=== PATIENT | male | born 1950 | race Caucasian/White ===

== ENCOUNTER → 2018-02-17 14:00 | Outpatient (CLI) | payer MEDICARE, SELFPAY | PROVIDERS: PCP Physician Assistant Medical; Visit Provider Student in an Organized Health Care Education/Training Program | DX: R06.09 Other forms of dyspnea (principal); E78.5 Hyperlipidemia, unspecified; I10 Essential (primary) hypertension; J44.9 Chronic obstructive pulmonary disease, unspecified; F17.210 Nicotine dependence, cigarettes, uncomplicated | CPT/HCPCS: 99204 ==

== ENCOUNTER 2018-03-23 11:42 | Outpatient (REF) | payer MEDICARE, SELFPAY ==
[2018-03-23 19:36] LABS: Abs Immature Grans 0.04 k/cumm (0.0-0.09); Absolute Eosinophil Count 0.13 k/cumm (0.0-0.7); Absolute Monocyte Count 1.48 k/cumm (0.11-0.7); Basophils % 0.4; Eosinophils % 1.2; HCT 42.7 % (40.0-50.0); HGB 13.9 g/dL (13.5-17.5); Immature Grans % 0.4; Lymphocytes % 26.1; Mean Corp. HGB Concentration 32.6 g/dL (32.0-36.0); Mean Corpuscular Hemoglobin 27.8 pg (27.0-33.0); Mean Corpuscular Volume 85.4 fL (80-95); Mean Platelet Volume 12.8 fL (8.0-11.0); Monocytes % 13.3; Neutrophils % 58.6; Platelet Count 235 x1000/uL (130-400); RBC Distribution Width 18.9 % (11.8-14.1); White Blood Cell Count 11.13 k/cumm (4.4-10.8)
[2018-03-23 19:37] LABS: Absolute Basophil Count 0.04 k/cumm (0.0-0.2); Absolute Neutrophil Count 6.52 k/cumm (1.2-6.7)
[2018-03-23 19:54] LABS: Iron 49 ug/dL (50-175); Total Iron Binding Capacity 388 ug/dL (250-450); Transferrin Sat 13 % (20-55)
[2018-03-23 20:03] LABS: ALT 27 U/L (12-78); AST 18 U/L (15-37); Albumin 3.5 g/dL (3.4-5.0); Alkaline Phosphatase 95 U/L (46-116); Anion Gap 8.7 mmol/L (3-11); BUN 18 mg/dL (7-18); Bilirubin, Total 0.4 mg/dL (0.2-1.0); CO2 27.3 mmol/L (21.0-32.0); CREATININE 0.98 mg/dL (0.70-1.30); Calcium 8.8 mg/dL (8.5-10.1); Chloride 104 mmol/L (98-107); Ferritin 17 ng/mL (8-388); Glucose 89 mg/dL (70-100); Potassium 4.4 mmol/L (3.5-5.1); Sodium 140 mmol/L (136-145); TSH (W/Ref FT4) 1.31 uIU/mL (0.358-3.74); Total Protein 7.1 g/dL (6.4-8.2)
[2018-03-23 20:47] LABS: Anisocytosis 1+; Diff Comment RBC Morph Reviewed
== END 2018-03-23 12:02 ==
LOC: NCHCN 11:42
PROVIDERS: PCP Physician Assistant Medical; Visit Provider Physician Assistant Medical
DX: I50.9 Heart failure, unspecified (principal); J44.9 Chronic obstructive pulmonary disease, unspecified; L53.9 Erythematous condition, unspecified; G89.4 Chronic pain syndrome; R60.9 Edema, unspecified; F17.209 Nicotine dependence, unspecified, with unspecified nicotine-induced disorders
CPT/HCPCS: 80053; 82728; 83540; 83550; 84443; 85025

== ENCOUNTER 2018-05-06 12:51 | Outpatient (RCR) | payer MEDICARE, SELFPAY | END 2018-06-04 23:59 | disposition home or self-care (01) | LOC: PRC 12:51 | PROVIDERS: PCP Physician Assistant Medical; Visit Provider Family Medicine | DX: Z51.89 Encounter for other specified aftercare (principal) ==

== ENCOUNTER 2018-06-02 02:01 | Outpatient (RCR) | payer MEDICARE, SELFPAY | END 2018-06-04 23:59 | disposition home or self-care (01) | LOC: PRC 02:01 | PROVIDERS: PCP Physician Assistant Medical; Visit Provider Family Medicine | DX: J44.9 Chronic obstructive pulmonary disease, unspecified (principal); Z51.89 Encounter for other specified aftercare | CPT/HCPCS: G0424 ==

== ENCOUNTER → 2018-06-08 14:34 | Outpatient (BNVA) | payer MEDICARE, SELFPAY | PROVIDERS: PCP Physician Assistant Medical; Visit Provider Urology | DX: N40.1 Benign prostatic hyperplasia with lower urinary tract symptoms (principal); R35.0 Frequency of micturition | CPT/HCPCS: 99213 ==

== ENCOUNTER 2018-06-09 09:57 | Outpatient (RCR) | payer MEDICARE, SELFPAY | END 2018-07-05 23:59 | disposition home or self-care (01) | LOC: PRC 09:57 | PROVIDERS: PCP Physician Assistant Medical; Visit Provider Family Medicine | DX: J44.9 Chronic obstructive pulmonary disease, unspecified (principal); Z51.89 Encounter for other specified aftercare | CPT/HCPCS: G0424 ==

== ENCOUNTER 2018-07-07 13:55 | Outpatient (RCR) | payer MEDICARE, SELFPAY | END 2018-08-05 23:59 | disposition home or self-care (01) | LOC: PRC 13:55 | PROVIDERS: PCP Physician Assistant Medical; Visit Provider Family Medicine | DX: J44.9 Chronic obstructive pulmonary disease, unspecified (principal); Z51.89 Encounter for other specified aftercare ==

== ENCOUNTER 2018-07-19 16:46 | Outpatient (REF) | payer MEDICARE, SELFPAY | END 2018-07-19 17:06 | LOC: NCHCN 16:46 | PROVIDERS: PCP Physician Assistant Medical; Visit Provider Nurse Practitioner Family | DX: Z12.5 Encounter for screening for malignant neoplasm of prostate (principal); N40.0 Benign prostatic hyperplasia without lower urinary tract symptoms | CPT/HCPCS: 84153 ==

== ENCOUNTER 2018-08-06 03:28 | Outpatient (RCR) | payer MEDICARE, SELFPAY | END 2018-09-02 23:59 | disposition home or self-care (01) | LOC: PRC 03:28 | PROVIDERS: PCP Physician Assistant Medical; Visit Provider Family Medicine | DX: J44.9 Chronic obstructive pulmonary disease, unspecified (principal); Z51.89 Encounter for other specified aftercare ==

== ENCOUNTER 2018-09-15 15:52 | Outpatient (REF) | payer MEDICARE, SELFPAY ==
[2018-09-15 21:40] LABS: ALT 25 U/L (12-78); AST 16 U/L (15-37); Cholesterol 147 mg/dL (50-200); HDL Cholesterol 34 mg/dL (40-60); LDL CHOLESTEROL 91 mg/dL (<100); Triglyceride 119 mg/dL (30-150)
[2018-09-15 22:10] LABS: Creatine Kinase 112 U/L (39-308)
== END 2018-09-15 16:12 ==
LOC: NCHCN 15:52
PROVIDERS: PCP Physician Assistant Medical; Visit Provider Nurse Practitioner Family
DX: E78.5 Hyperlipidemia, unspecified (principal); I10 Essential (primary) hypertension
CPT/HCPCS: 80061; 82550; 83721; 84450; 84460

== ENCOUNTER 2018-11-08 16:22 | Outpatient (REF) | payer MEDICARE, SELFPAY ==
[2018-11-08 21:39] LABS: Bacteria Negative HPF (Negative); C & S Indicated? C&S Done As Ordered; Casts Negative LPF (Negative); Crystals Negative HPF (Negative); Epithelial Cells Few HPF (Negative); Mucus Negative (Negative); Other Cells Negative (Negative); RBC Negative (0-2)
== END 2018-11-08 16:42 ==
LOC: NCHCN 16:22
PROVIDERS: PCP Physician Assistant Medical; Visit Provider Nurse Practitioner Family
DX: R31.0 Gross hematuria (principal); R06.02 Shortness of breath; L53.9 Erythematous condition, unspecified; G89.4 Chronic pain syndrome
CPT/HCPCS: 81015; 87086

== ENCOUNTER 2019-03-31 16:57 | Outpatient (REF) | payer MEDICARE, SELFPAY ==
[2019-03-31 21:24] LABS: Anion Gap 7.9 mmol/L (3-11); BUN 18 mg/dL (7-18); CO2 29.1 mmol/L (21.0-32.0); CREATININE 0.83 mg/dL (0.70-1.30); Calcium 9.1 mg/dL (8.5-10.1); Chloride 103 mmol/L (98-107); Glucose 98 mg/dL (70-100); Potassium 5.1 mmol/L (3.5-5.1); Sodium 140 mmol/L (136-145)
== END 2019-03-31 17:17 ==
LOC: NCHCN 16:57
PROVIDERS: PCP Physician Assistant Medical; Visit Provider Nurse Practitioner Family
DX: L97.929 Non-pressure chronic ulcer of unspecified part of left lower leg with unspecified severity (principal); L97.919 Non-pressure chronic ulcer of unspecified part of right lower leg with unspecified severity; I10 Essential (primary) hypertension
CPT/HCPCS: 80048

== ENCOUNTER 2019-05-04 01:04 | Outpatient (CLI) | payer MEDICARE, SELFPAY ==
--- NOTE | 2019-05-04 14:05 | DI.CTLCSR_ITS ---
EXAM: CT CHEST LUNG CANCER SCREEN CLINICAL HISTORY: SMOKER, F17.210,[facility], Z00.00 TECHNIQUE: CT was performed according to usual protocol. COMPARISON: CHEST - LUNG CANCER SCREENING from 10/09/2017 FINDINGS: There is atherosclerosis of the thoracic aorta but no aneurysmal dilatation is present. Heart size i s within normal limits. No pericardial effusion is present. Coronary artery calcifications are prese nt. No significant thoracic adenopathy is present. No pleural effusion or pneumothorax is identifie d. Emphysematous changes are present in the lungs. There is scarring or atelectasis in the right mi ddle lobe and left lingula. No pulmonary nodules are present. The tracheobronchial tree is unremark able. Degenerative changes are seen in the spine. IMPRESSION: No pulmonary nodules. Lung RADS Cat 1 - Negative: No nodules and definitely benign nodules
== END 2019-05-04 01:24 ==
PROVIDERS: PCP Nurse Practitioner Family; Visit Provider Nurse Practitioner Family
DX: Z12.2 Encounter for screening for malignant neoplasm of respiratory organs (principal); F17.210 Nicotine dependence, cigarettes, uncomplicated; J98.4 Other disorders of lung; I70.0 Atherosclerosis of aorta
CPT/HCPCS: G0297

== ENCOUNTER → 2019-08-19 13:58 | Outpatient (BNVA) | payer MEDICARE, SELFPAY | PROVIDERS: PCP Nurse Practitioner Family; Referring Provider Nurse Practitioner Family; Visit Provider Urology | DX: R97.20 Elevated prostate specific antigen [PSA] (principal); N40.1 Benign prostatic hyperplasia with lower urinary tract symptoms; R31.0 Gross hematuria; N13.8 Other obstructive and reflux uropathy | CPT/HCPCS: 99213 ==

== ENCOUNTER 2019-09-13 16:01 | Outpatient (REF) | payer MEDICARE, SELFPAY ==
[2019-09-13 20:50] LABS: ALT 26 U/L (16-63); AST 14 U/L (15-37); Anion Gap 6.7 mmol/L (3-11); BUN 18 mg/dL (7-18); CO2 29.3 mmol/L (21.0-32.0); CREATININE 0.87 mg/dL (0.70-1.30); Calcium 8.3 mg/dL (8.5-10.1); Chloride 104 mmol/L (98-107); Glucose 97 mg/dL (74-106); HDL Cholesterol 36 mg/dL (40-60); LDL CHOLESTEROL 106 mg/dL (<100); Potassium 4.3 mmol/L (3.5-5.1); Sodium 140 mmol/L (136-145)
[2019-09-13 21:15] LABS: Creatine Kinase 61 U/L (39-308)
[2019-09-15 10:13] LABS: PSA, Diagnostic 1.2 ng/mL (0.0-4.5)
== END 2019-09-13 16:21 ==
LOC: NCHCN 16:01
PROVIDERS: PCP Nurse Practitioner Family; Visit Provider Nurse Practitioner Family
DX: I10 Essential (primary) hypertension (principal); R06.02 Shortness of breath; E78.5 Hyperlipidemia, unspecified; N40.0 Benign prostatic hyperplasia without lower urinary tract symptoms
CPT/HCPCS: 80048; 82550; 83721; 83718; 84153; 84450; 84460

== ENCOUNTER 2019-11-07 16:35 | Outpatient (REF) | payer MEDICARE, SELFPAY ==
[2019-11-07 20:01] LABS: ALT 31 U/L (16-63); AST 20 U/L (15-37); HDL Cholesterol 38 mg/dL (40-60); LDL CHOLESTEROL 138 mg/dL (<100)
[2019-11-07 22:28] LABS: Creatine Kinase 70 U/L (39-308)
== END 2019-11-07 16:55 ==
LOC: NCHCN 16:35
PROVIDERS: PCP Nurse Practitioner Family; Visit Provider Nurse Practitioner Family
DX: E78.5 Hyperlipidemia, unspecified (principal); I10 Essential (primary) hypertension; F17.209 Nicotine dependence, unspecified, with unspecified nicotine-induced disorders; J44.9 Chronic obstructive pulmonary disease, unspecified; E78.00 Pure hypercholesterolemia, unspecified; M54.5 Low back pain
CPT/HCPCS: 82550; 83721; 83718; 84450; 84460

== ENCOUNTER 2020-03-06 20:41 | Outpatient (REF) | payer MEDICARE, SELFPAY ==
[2020-03-06 19:43] LABS: Anion Gap 7.4 mmol/L (3-11); BUN 15 mg/dL (7-18); CO2 29.6 mmol/L (21.0-32.0); CREATININE 0.94 mg/dL (0.70-1.30); Chloride 104 mmol/L (98-107); Glucose 99 mg/dL (74-106); Potassium 4.9 mmol/L (3.5-5.1); Sodium 141 mmol/L (136-145)
== END 2020-03-06 21:01 ==
LOC: NCHCN 20:41
PROVIDERS: PCP Nurse Practitioner Family; Visit Provider Nurse Practitioner Family
DX: I10 Essential (primary) hypertension (principal)
CPT/HCPCS: 80048

== ENCOUNTER 2020-04-25 14:54 | Outpatient (REF) | payer MEDICARE, SELFPAY ==
[2020-04-28 23:56] LABS: Patient Race White; SARS-CoV-2 RNA Undetected (Undetected); SARS-CoV-2 Specimen Source Nasal
== END 2020-04-25 15:14 ==
LOC: NCHCN 14:54
PROVIDERS: PCP Nurse Practitioner Family; Visit Provider Nurse Practitioner Family
DX: R19.7 Diarrhea, unspecified (principal); R10.9 Unspecified abdominal pain
CPT/HCPCS: U0003

== ENCOUNTER 2020-05-07 02:18 | Outpatient (CLI) | payer MEDICARE, SELFPAY ==
--- NOTE | 2020-05-07 | DI.CTLCSR_ITS ---
EXAM: CT CHEST LUNG CANCER SCREEN CLINICAL HISTORY: SCREENING FOR LUNG CA, CURRENT SMOKER, F17.210 TECHNIQUE: Imaging Protocol: Axial computed tomography images with coronal and sagittal reformatted images were created and reviewed COMPARISON: CT CT CHEST LUNG CANCER SCREEN from 05/04/2019 FINDINGS: Tracheobronchial tree: Patent where visualized. Mediastinum and Kati: No dominant adenopathy or fluid collection. Pulmonary parenchyma: No consolidation or dominant measurable mass. Centrilobular emphysema. Lung Nodules: None. Pleura: No effusion or pneumothorax. Heart: The heart is not dilated. Mild coronary artery calcification. No significant pericardial effu tasia. Aorta: Thoracic aorta non-dilated.Atherosclerosis. Upper abdomen: Unremarkable. Bones: Degenerative changes. Soft Tissues: Unremarkable. IMPRESSION: No pulmonary nodules. Lung RADS Cat 1 - Negative: No nodules and definitely benign nodules Lung-RADS 1.0 CATEGORIES: Category 0 - Prior chest CT exam(s) being located for comparison. Category 1 - Annual screening in 12 months. No nodules or definitely benign nodules. Category 2 - Annual screening in 12 months. Benign appearance. Nodules with low likelihood of becomin g active cancer. Category 3 - 6-month follow-up. Probably benign. Short-term follow-up suggested. Nodules with low lik elihood of becoming active cancer. Category 4A - 3-month follow-up and CT/PET if >8 mm in size. Suspicious finding. Findings which requi re additional testing. Category 4B - Findings which require additional testing and tissue sampling. Suspicious finding. C Added to Any of the Above - History of prior lung cancer screening. S Added to Any of the Above - Significant unexpected other finding. RADIATION DOSE DELIVERED: 84.12mGy.cm Total DLP DATA REPOSITORY: All CT scans at this facility are submitted to the National Radiology Data Registry (NRDR) Dose Index Registry (DIR) with the [employer] (ACR). RADIATION OPTIMIZATION: All CT scans at this facility use at least one of these dose optimization te chniques: automated exposure control; mA and/or kV adjustment per patient size (includes targeted exa ms where dose is matched to clinical indication); or iterative reconstruction.
== END 2020-05-07 02:38 ==
PROVIDERS: PCP Nurse Practitioner Family; Visit Provider Internal Medicine
DX: F17.210 Nicotine dependence, cigarettes, uncomplicated (principal)
CPT/HCPCS: G0297

== ENCOUNTER 2020-05-17 01:24 | Outpatient (CLI) | payer MEDICARE, SELFPAY ==
--- NOTE | 2020-05-17 | DI.RAD_ITS ---
EXAM: XR LUMBAR SPINE COMPLETE CLINICAL HISTORY: WORSENING CHRONIC LOW BACK PAIN,M54.5,EVALUATED OA. TECHNIQUE: 2D digital imaging was performed. COMPARISON: No exams were available for comparison FINDINGS: There are 5 lumbar type vertebral bodies. There is normal alignment. No spondylolysis or spondyloli sthesis. Narrowing at the T12-L1 and L1-L2 disc spaces is noted. There are degenerative changes of the L5-S1 facets. No acute fracture or subluxation is identified. Atherosclerosis is present. IMPRESSION: Cyto-xa-qenvquzm degenerative changes in the lumbar spine. DATA REPOSITORY: RADIATION DOSE DELIVERED:
== END 2020-05-17 01:44 ==
PROVIDERS: PCP Nurse Practitioner Family; Visit Provider Nurse Practitioner Family
DX: M47.817 Spondylosis without myelopathy or radiculopathy, lumbosacral region (principal)
CPT/HCPCS: 72110

== ENCOUNTER 2020-07-05 16:30 | Outpatient (REF) | payer MEDICARE, SELFPAY ==
[2020-07-08 13:18] LABS: COVID-19 RT-PCR UVMMC Result Negative (Negative)
== END 2020-07-05 16:50 ==
LOC: NCHCN 16:30
PROVIDERS: PCP Nurse Practitioner Family; Visit Provider Nurse Practitioner Family
DX: Z20.828 Contact with and (suspected) exposure to other viral communicable diseases (principal)
CPT/HCPCS: U0003

== ENCOUNTER 2020-07-12 21:12 | Outpatient (REF) | payer OTHER, SELFPAY ==
[2020-07-14 11:36] LABS: COVID-19 RT-PCR UVMMC Result Negative (Negative)
== END 2020-07-12 21:32 ==
LOC: NCHCN 21:12
PROVIDERS: PCP Nurse Practitioner Family; Visit Provider Nurse Practitioner Family
DX: Z20.828 Contact with and (suspected) exposure to other viral communicable diseases (principal)
CPT/HCPCS: U0003

== ENCOUNTER 2020-08-21 15:36 | Outpatient (REF) | payer OTHER, SELFPAY ==
[2020-08-21 19:43] LABS: ALT 25 U/L (16-63); AST 11 U/L (15-37); Anion Gap 5.8 mmol/L (3-11); BUN 15 mg/dL (7-18); CO2 28.2 mmol/L (21.0-32.0); CREATININE 0.9 mg/dL (0.70-1.30); Calcium 9.2 mg/dL (8.5-10.1); Chloride 105 mmol/L (98-107); Glucose 91 mg/dL (74-106); HDL Cholesterol 42 mg/dL (40-60); LDL CHOLESTEROL 112 mg/dL (<100); Sodium 139 mmol/L (136-145)
[2020-08-21 19:57] LABS: Creatine Kinase 55 U/L (39-308)
[2020-08-22 17:02] LABS: PSA, Screening 1.4 ng/mL (0.0-6.5)
== END 2020-08-21 15:37 | disposition home or self-care (01) ==
LOC: NCHCN 15:36
PROVIDERS: PCP Nurse Practitioner Family; Visit Provider Nurse Practitioner Family
DX: I10 Essential (primary) hypertension (principal); R97.20 Elevated prostate specific antigen [PSA]; Z12.5 Encounter for screening for malignant neoplasm of prostate; E78.00 Pure hypercholesterolemia, unspecified
CPT/HCPCS: 80048; 82550; 83721; 84153; 83718; 84450; 84460

== ENCOUNTER → 2020-09-06 10:04 | Outpatient (BNVA) | payer OTHER, SELFPAY | PROVIDERS: PCP Nurse Practitioner Family; Referring Provider Nurse Practitioner Family; Visit Provider Nurse Practitioner Gerontology | DX: R31.0 Gross hematuria (principal); R97.20 Elevated prostate specific antigen [PSA]; N40.1 Benign prostatic hyperplasia with lower urinary tract symptoms; N13.8 Other obstructive and reflux uropathy | CPT/HCPCS: 99213 ==

== ENCOUNTER → 2021-02-25 00:17 | Outpatient (CLI) | payer OTHER, SELFPAY ==
--- NOTE | 2021-02-25 11:00 | DI.NM_ITS ---
APPROVED REPORT Exam: Pharmacologic Patient Location: Out-Patient Room/Bed: Stress Nurse: Meena Gibson RN Ordering Provider:SUNIL MARTINEZ, Contact Number: [phone] BMI: 54.81 Baseline Rhythm: Sinus Rhythm Comment: RBBB Indications: Exertional shortness of breath, obesity, COPD, smoker Medical History Medical History: Restrictive lung disease, tobacco use, right ventricular dysfunction, BREANNA, gerd, obe sity, hyperlipidemia, CHF, COPD, depression, peripheral edema, hypertension Cardiac Medications: tiotropium-olodaterol inhaler, simvastatin, lisinopril, furosemide, fluticasone, propionate inhaler, fluticasone-umeclid inhaler, fluticasone-salmeterol inhaler, aspirin Allergies: rosuvastatin, varenicline Cardiac Risk Factors: Hypertension, hyperlipidemia, obesity, smoker (current), COPD Previous Cardiac Procedures: None Pretest Chest Pain Characteristics: None Exercise History: Sedentary Physical Disabilities: None Lung Sounds: Clear to auscultation Heart Sounds: Regular Stress Test Details Test: Exercise stress converted to pharmacologic stress due to failure to obtain a diagnostic stress test. Reason for pharmacologic stress test: changed from exercise stress test due to inability to reach t arget heart rate. Nuclear Acquisition: Rest Tc-99m/Stress Tc-99m 1 day Rest Isotope: Tc-99m Sestamibi. Dose: 14.5 Date: 02/25/2021 Injection Time: 1125 Stress Isotope: Tc-99m Sestamibi. Dose: 45.2 Date: 02/25/2021 Injection Time: 1325 HR Resting HR Supine: 80 bpm Max Heart Rate (APMHR): 150.108016 bpm Resting HR Standin bpm Target HR (85% APMHR): 127.837701 bpm Max HR Achieved: 135 bpm % of APMHR: 90.00 Recovery HR: 89 bpm BP Resting BP Supine: 142/88 mmHg Resting BP Standin/88 mmHg Max BP: 142/88 mmHg Recovery BP: 130/80 mmHg ECG Resting ECG: Sinus Rhythm, RBBB Ectopy: None Stress ECG: Sinus Tachycardia, RBBB ST Change: No significant ST segment changes noted Arrhythmia: Rare PVC, couplet Recovery ECG: Sinus Rhythm, RBBB Recovery ST Change: No significant ST segment changes noted Recovery Arrhythmia: Rare PVC Clinical Reason for Termination: Dyspnea, Fatigue Stress Symptoms: Dyspnea, General Fatigue Highest Stage Reached: Stage 1: 1.7 mph at 10% grade. Exercise capacity: 2 METs Rate Pressure Product: [id number] Stress ECG Conclusion 1. Resting electrocardiogram showed right bundle branch block 2. Patient underwent exercise stress as well as pharmacologic stress 3. Patient achieved 90% of predicted heart rate for age. Electrocardiographically there was no evide nce of myocardial ischemia 4. Rare PVCs were seen Stress Test Summary STAGE Time (mins) Speed (mph) Grade (%) HR BP SYMPTOMS METS Supine 80 142/88 Standing 86 142/88 1 3 1.7 10 98 SpO2 91%, severe SOB 4.6 1 min post Lexiscan injection 115 138/84 SpO2 93%, SOB improving 3 min post Lexiscan injection 102 132/78 SpO2 91%, SOB improving 6 min post Lexiscan injection 89 130/80 SpO2 94%, SOB resolved MPI Conclusion Technically suboptimal. No significant areas of ischemia or infarction seen Radiologist Interpretation Radiologist agrees with Environmental Control Administrator's Interpretation. Radiologist Interpretation by: Katya El MD Interpretation Date/Time: 02/26/2021 15:48:36
[2021-02-25] MEDS: Regadenoson 0.4 MG/5 ML SYR IVP (13:58)
== END ==
PROVIDERS: PCP Nurse Practitioner Family; Visit Provider Nurse Practitioner Family
DX: R06.02 Shortness of breath (principal); E66.9 Obesity, unspecified; J44.9 Chronic obstructive pulmonary disease, unspecified; F17.210 Nicotine dependence, cigarettes, uncomplicated; I45.19 Other right bundle-branch block
CPT/HCPCS: 78452; 93016; 93018; 93017; J2785

== ENCOUNTER 2021-02-28 04:05 | Outpatient (CLI) | payer OTHER, SELFPAY ==
[2021-02-28] MEDS: Albuterol HFA 18 GM 200 PUFF INH IH (15:47)
[2021-02-28] MEDS: Inhaler, Assist Device 1 EACH MC (15:48)
--- NOTE | 2021-03-01 11:24 | W.PFT ---
Date of service: 02/28/21 Time of Service: 15:06 Pulmonary Function Test Result Requesting Provider Lety Interpretation Spirometry: There is no airflow limitation. There is no significant bronchodilator response. There is a restrictive pattern on spirometry. Lung Volumes: There is moderate restriction. Diffusion Capacity: Diffusion is reduced. Airway Pressure: There is no increase in airways resistance. Impression Moderate restrictive lung disease. Note: When compared to 12/30/2019 the FEV1 and FVC have improved. When compared to 08/15/2009 the TLC has reduced as has the diffusion. Clinical Correlation therefore is recommended.
== END 2021-02-28 04:06 | disposition home or self-care (01) ==
LOC: RT 04:05
PROVIDERS: PCP Nurse Practitioner Family; Visit Provider Student in an Organized Health Care Education/Training Program
DX: J44.9 Chronic obstructive pulmonary disease, unspecified (principal); J98.4 Other disorders of lung
CPT/HCPCS: 94060; 94726; 94729

== ENCOUNTER → 2021-04-15 00:52 | Outpatient (CLI) | payer OTHER, SELFPAY ==
--- NOTE | 2021-04-15 14:01 | DI.US_ITS ---
APPROVED REPORT EXAM: Comprehensive 2D, Doppler, and color-flow Echocardiogram Patient Location: Out-Patient Filter Cleaner: Angeles Guerrero RDCS (AE) Indications: Exertional SOB, Mitral regurgitation, Smoker, Obese Other Information Study Quality: Fair. Technically limited study due to body habitus, inability to position patient. Conclusion Normal left ventricular wall thickness and chamber size. Estimated ejection fraction is 58%. Left v entricular wall motion is grossly normal The right ventricle appears mildly dilated. There is diastolic septal flattening suggesting right ve ntricular pressure overload The left atrium is normal in size. The right atrium is not well visualized Normal trileaflet aortic valve without aortic stenosis or regurgitation Normal mitral valve with trace to mild regurgitation Normal tricuspid valve with trace regurgitation. Estimated right ventricular systolic pressure is 31 .4 mmHg Normal pulmonic valve Wall motion Left Ventricle The left ventricle is normal size. The overall left ventricular systolic function appears normal. The re is normal left ventricular wall thickness. There is normal LV segmental wall motion. There is no v entricular septal defect visualized. LVEF is 58%. Right Ventricle Right ventricle is mildly dilated. Septum is flat in systole consistent with RV pressure overload. Th e RVSP is 31.4_ mmHg. Atria The left atrium size is normal. Right atrium is not well visualized. The interatrial septum is intact with no evidence for an atrial septal defect. Aortic Valve The aortic valve is normal in structure. Aortic valve is trileaflet. There is no aortic valvular addis nosis. No aortic regurgitation is present. Mitral Valve The mitral valve is normal in structure. No evidence of mitral valve stenosis. Trace to mild mitral r egurgitation. Tricuspid Valve The tricuspid valve is normal in structure. There is no tricuspid valve stenosis. Trace tricuspid reg urgitation. Estimated right ventricular systolic pressure is 31 mmHg Pulmonic Valve The pulmonary valve is normal in structure. There is no pulmonic valvular stenosis. There is no pulmo jonathan valvular regurgitation. Great Vessels The aortic root is normal in size. The ascending aorta is normal in size. Aortic arch is not well vis ualized. The IVC collapses <50% with inspiration. Pericardium There is no pericardial effusion. 2D Dimensions IVSD d PLAX 1.02 cm M: 0.6-1.2 LVPW d PLAX 1.04 cm M: 0.6 - 1.2 LVID d PLAX 5.22 cm M: 4.2 - 5.8 LVDs 3.55 cm M: 2.5 - 4.0 Ao Root d 2.69 cm M: 3.1 - 3.7 Ao Asc Diam d 3.19 cm M: 2.6 - 3.4 LV [facility] % FS 31.10 % M-Mode TAPSE 2.85 cm (M/F) >1.7 LV Diastology MV E' medial 0.101 (>0.07 m/s) E/A Ratio 1.2 LV E/e MED 9.50 (<14) MV E Vmax 0.96 (0.4-1.3 m/s) MV E' lateral 0.095 (>0.1 m/s) MV A Vmax 0.80 (0.4-1.3 m/s) LV E/e LAT 10.10 (<14) MV E/A Ratio 1.16 MV E/E' medial 9.51 MV E/E' lateral 10.10 Aortic Valve LVOT Area 3.90 cm2 AoV Area Vmax 3.08 cm2 LVOT Vmax 1.19 m/s AoV Area/ BSA (Vmax) 1.20 cm2/m2 LVOT Mean Armando. 0.88 m/s NATHANAEL Mean Armando. 3.11 cm2 LVOT Peak Grad 5.6 mmHg NATHANAEL Mean Armando. Index 1.21 cm2/m2 LVOT Mean Grad 3.3 mmHg LVOT VTI 0.265 m LVOT Diam s 2.20 cm AoV Vmax 1.50 m/s Velocity Ratio 0.79 AoV Mean Armando. 1.10 m/s AoV Peak Grad 9.0 mmHg LVOT SV 103.50 mL AoV Mean Grad 5.4 mmHg AoV VTI 0.319 m AoV Area VTI 3.24 cm2 AoV Area/ BSA (VTI) 1.26 cm/m2 Mitral Valve MV DT 206 (160-240 msec) MR Vmax 5.08 m/s MV PHT 60 msec MR VTI 1.580 m MV Area PHT 3.69 cm2 MR Peak Grad 103.4 mmHg MV VTI 0.254 m MR Mean Grad 81.9 mmHg MV VTI Annulus 0.254 m MV Area VTI 4.07 (4.0-6.0 cm2) Pulmonary Valve PV Vmax 0.85 (0.5-1.5 m/s) RVOT Peak Gr. 2.06 mmHg PV Peak Grad 2.9 mmHg RVOT Mean Gr. 1.05 mmHg PV Mean Grad 1.5 mmHg RVOT VTI 0.161 m PV VTI 0.166 m RVOT Vmax 0.72 m/s Tricuspid Valve TR Peak Grad 23.4 mmHg TR Vmax 2.42 m/s RA Pressure 8.00 mmHg RVSP (TR) 31.4 mmHg
== END ==
PROVIDERS: PCP Nurse Practitioner Family; Visit Provider Nurse Practitioner Family
DX: R06.09 Other forms of dyspnea (principal); I34.0 Nonrheumatic mitral (valve) insufficiency; F17.210 Nicotine dependence, cigarettes, uncomplicated; E66.9 Obesity, unspecified
CPT/HCPCS: 93306

== ENCOUNTER 2021-05-13 00:26 | Outpatient (CLI) | payer MEDICARE, SELFPAY ==
--- NOTE | 2021-05-13 07:30 | DI.CTLCSR_ITS ---
Exam(s) CT CHEST LUNG CANCER SCREEN EXAM: CT CHEST LUNG CANCER SCREEN CLINICAL HISTORY: Screening for lung cancer,current smoker, f17.210 TECHNIQUE: Imaging Protocol: Axial computed tomography images with coronal and sagittal reformatted images were created and reviewed COMPARISON: CT CT CHEST LUNG CANCER SCREEN from 05/07/2020 FINDINGS: Examination limited by patient body habitus. Tracheobronchial tree: Patent where visualized. Pulmonary parenchyma: No consolidation or dominant measurable mass. Centrilobular emphysema. Lung Nodules: None. Mediastinum and Kati: No dominant adenopathy or fluid collection. Thyroid gland: Unremarkable. Pleura: No effusion or pneumothorax. Heart: The heart is not dilated. Coronary artery calcifications are present. No pericardial effusion . Aorta: Thoracic aorta non-dilated.Atherosclerosis. Upper abdomen: Unremarkable. Soft Tissues: Unremarkable. Bones: Within normal limits. IMPRESSION: No pulmonary nodules. Lung RADS Cat 1 - Negative: No nodules and definitely benign nodules Lung-RADS 1.0 CATEGORIES: Category 0 - Prior chest CT exam(s) being located for comparison. Category 1 - Annual screening in 12 months. No nodules or definitely benign nodules. Category 2 - Annual screening in 12 months. Benign appearance. Nodules with low likelihood of becomin g active cancer. Category 3 - 6-month follow-up. Probably benign. Short-term follow-up suggested. Nodules with low lik elihood of becoming active cancer. Category 4A - 3-month follow-up and CT/PET if >8 mm in size. Suspicious finding. Findings which requi re additional testing. Category 4B - Findings which require additional testing and tissue sampling. Suspicious finding. Modifier S- Potentially clinically significant finding. (Non lung cancer) RADIATION DOSE DELIVERED: 86.97mGy.cm Total DLP 2.21mGy CTDIvol 86.97mGy.cm Total DLP 2.21mGy CTDIvol DATA REPOSITORY: All CT scans at this facility are submitted to the National Radiology Data Registry (NRDR) Dose Index Registry (DIR) with the [employer] (ACR). RADIATION OPTIMIZATION: All CT scans at this facility use at least one of these dose optimization te chniques: automated exposure control; mA and/or kV adjustment per patient size (includes targeted exa ms where dose is matched to clinical indication); or iterative reconstruction.
== END 2021-05-13 00:46 ==
PROVIDERS: PCP Nurse Practitioner Family; Visit Provider Student in an Organized Health Care Education/Training Program
DX: Z12.2 Encounter for screening for malignant neoplasm of respiratory organs (principal); F17.210 Nicotine dependence, cigarettes, uncomplicated
CPT/HCPCS: 71271

== ENCOUNTER → 2021-09-11 15:07 | Outpatient (BNVA) | payer MEDICARE, SELFPAY | PROVIDERS: PCP Nurse Practitioner Family; Referring Provider Nurse Practitioner Family; Visit Provider Nurse Practitioner Gerontology | DX: R31.0 Gross hematuria (principal); N40.1 Benign prostatic hyperplasia with lower urinary tract symptoms; N13.8 Other obstructive and reflux uropathy; R97.20 Elevated prostate specific antigen [PSA] | CPT/HCPCS: 99213 ==

== ENCOUNTER 2021-09-30 14:01 | Outpatient (REF) | payer MEDICARE, SELFPAY ==
[2021-09-30 20:09] LABS: ALT 23 U/L (16-63); AST 11 U/L (15-37)
[2021-09-30 20:13] LABS: BUN 13 mg/dL (7-18); CREATININE 0.9 mg/dL (0.70-1.30); Calcium 8.8 mg/dL (8.5-10.1); Chloride 105 mmol/L (98-107); Creatine Kinase 48 U/L (39-308); Glucose 94 mg/dL (74-106); HDL Cholesterol 38 mg/dL (40-60); LDL CHOLESTEROL 111 mg/dL (<100); Potassium 5.1 mmol/L (3.5-5.1); Sodium 141 mmol/L (136-145)
== END 2021-09-30 14:02 | disposition home or self-care (01) ==
LOC: NCHCN 14:01
PROVIDERS: PCP Nurse Practitioner Family; Visit Provider Nurse Practitioner Family
DX: I10 Essential (primary) hypertension (principal); M54.50 Low back pain, unspecified; L91.8 Other hypertrophic disorders of the skin; G89.29 Other chronic pain
CPT/HCPCS: 80048; 82550; 83721; 83718; 84450; 84460

== ENCOUNTER 2022-02-18 15:37 | Outpatient (REF) | payer MEDICARE, SELFPAY ==
[2022-02-18 19:23] LABS: Abs Immature Grans 0.03 10^3/uL (0.0-0.06); Absolute Basophil Count 0.05 10^3/uL (0.0-0.2); Absolute Eosinophil Count 0.05 10^3/uL (0.0-0.7); Absolute Lymphocyte Count 1.75 10^3/uL (1.2-3.4); Absolute Monocyte Count 0.93 10^3/uL (0.1-0.8); Basophils % 0.7; Eosinophils % 0.7; HCT 43.5 % (40.0-50.0); HGB 14.8 g/dL (13.5-17.5); Immature Grans % 0.4; Lymphocytes % 24.6; MCH 30.8 pg (27.0-33.0); MCV 91 fL (80-95); MPV 12.5 fL (8.0-11.0); Monocytes % 13.1; Neutrophils % 60.5; Platelet Count 177 10^3/uL (130-400); RDW 15.9 % (11.8-14.1); WBC 7.11 10^3/uL (4.4-10.8)
[2022-02-18 19:40] LABS: ALT 26 U/L (16-63); AST 20 U/L (15-37); Albumin 3.1 g/dL (3.4-5.0); Alkaline Phosphatase 84 U/L (46-116); Anion Gap 7.3 mmol/L (3-11); BUN 15 mg/dL (7-18); Bilirubin, Total 0.3 mg/dL (0.2-1.0); CO2 27.7 mmol/L (21.0-32.0); CREATININE 0.9 mg/dL (0.70-1.30); Calcium 8.3 mg/dL (8.5-10.1); Chloride 103 mmol/L (98-107); Glucose 126 mg/dL (74-106); NT-proBNP 34 pg/mL (<300); Sodium 138 mmol/L (136-145); Total Protein 7.2 g/dL (6.4-8.2)
== END 2022-02-18 15:38 | disposition home or self-care (01) ==
LOC: NCHCN 15:37
PROVIDERS: PCP Nurse Practitioner Family; Visit Provider Nurse Practitioner Family
DX: R06.02 Shortness of breath (principal); M54.59 Other low back pain
CPT/HCPCS: 80053; 83880; 85025

== ENCOUNTER 2022-05-23 00:41 | Outpatient (CLI) | payer MEDICARE, SELFPAY ==
--- OUTSIDE RECORDS SUMMARY | 2022-05-23 00:43 | XMS_ITS | Encounter Summary ---
:1950 [place] [address] Care Team Providers Name Role Phone Krystal Hill APRN Primary Care Provider Encounter Details Date Type Department Care Team Description 08/02/2010 Hospital Encounter Same Day Program at [facility], [facility] [address] [place] [address] [place] [address] [phone] (Wo rk) Social History Tobacco Use Types Packs/Day Years Used Date Smoking Tobacco: Never Assessed Sex Assigned at Date Recorded Not on file documented as of this encounter Medications at Time of Discharge Medication Sig Dispensed Refills Start Date End Date lisinopril (PRINIVIL;ZESTRIL) 10 mg 0 07/30/2010 tablet Pantoprazole (PROTONIX) 40 mg SuDR 0 0 07/30/2010 simvastatin (ZOCOR) 20 mg tablet 0 furosemide (LASIX) 40 mg tablet 0 07/07 hydroCODone-acetaminophen (VICODIN) 5-500 0 07/30/2010 mg per tablet finasteride (PROSCAR) 5 mg tablet 0 09/21/2014 citalopram (CELEXA) 20 mg tablet 0 09/21/2014 aspirin 325 mg EC tablet 0 07/30/2010 09/21/2014 documented as of this encounter Plan of Treatment Not on filedocumented as of this encounter Visit Diagnoses Not on filedocumented in this encounter Active and Recently Administered Medications Care Teams Residential Energy Auditor Relationship Specialty Start Date End Date Krystal Hill APRN PCP - General 05/28/10 documented as of this encounter
--- OUTSIDE RECORDS SUMMARY | 2022-05-23 00:43 | XMS_ITS | Encounter Summary ---
:1950 [place] [address] Care Team Providers Name Role Phone Krystal Hill APRN Primary Care Provider Encounter Details Date Type Department Care Team Description 09/29/2014 Procedure visit [facility] at Mari Viz[facility]ain[facility] [address] (pediatric) [place], [place] SLEEP DISORDERS [id number] CENTER [phone] [place] [address] Social History Tobacco Use Types Packs/Day Years Used Date Smoking Tobacco: Every Day Cigarettes 1 Sex Assigned at Date Recorded Not on file documented as of this encounter Last Filed Vital Signs Vital Sign Reading Time Taken Comments Blood Pressure 126/68 09/29/2014 8:00 PM EDT Pulse 90 09/29/2014 8:00 PM EDT Temperature - - Respiratory Rate - - Oxygen Saturation - - Inhaled Oxygen Concentration - - Weight 144.2 kg (318 lb) 09/29/2014 8:00 PM EDT Height 168.9 cm (5' 6.5) 09/29/2014 8:00 PM EDT Body Mass Index 50.56 09/29/2014 8:00 PM EDT documented in this encounter Progress Notes Mari Vizcaino MD - 10/05/2014 1:46 PM EDT Images from the original note were not included. REPORT OF POSITIVE PRESSURE TITRATION History Of Present Illness: Clint Durand is a 64 y.o. male who presents for a polysomnogram. Polysomnography: The patient's sleep was evaluated for one night at the [facility]. Sleep was monitored in accordance with recommended AASM guidelines. The recording also included oral/nasal airflow, chest and abdominal respiratory effort, nasal pressure, single channel EKG, intercostal EMG, bilateral tibialis EMG, and oxygen saturation (by pulse oximeter). Type of Positive Pressure Utilized: BiPAP Comment: - Sleep/EEG: Sleep efficiency: significantly reduced at 25%; prolonged sleep onset latency and increased wake time after sleep onset Sleep architecture: elevated N1 REM Observed: no Supine position observed: yes - Respiratory: BiPAP was evaluated from 17/12cm to 24/18cm. A fully effective pressure was not identified. There was reasonable control of obstructive events while non-supine with BiPAP 19/14cm. Obstructive hypopneas reemerged in the supine position and persisted across the pressure range tested however, there was minimal, fragmented sleep while supine. Leak was also elevated despite numerous mask changes. Mean SaO2: 94% Minimum SaO2: 88% - EKG: Normal sinus rhythm. - EMG: Clusters of PLMs observed. Assessment: Clint Durand is a 64 y.o. male whose polysomnogram did not reveal an effective BiPAPpressure. There was significantly reduced total sleep time; additionally, mask leak was elevated despite numerous changes to the mask interface. There was reasonable control of events and acceptable control of mask leak in NREM while non-supine with BiPAP at 19/14cm. Higher pressures may be required when supine. Clusters of periodic limb movements observed; the significance of limb movements is unclear however, particularly in the context of sleep-disordered breathing. Phone message left for patientto review study results. Recommendations: 1. Consider beginning BiPAP at 19/14 cm with a small Weinmann Silk Anaya full face mask. A deluxe chinstrap was used during the study; patient could also consider using a mask liner 2. Follow up appointment will be scheduled after initiating BiPAP [facility] CPAP/BILEVEL REPORT Patient Name: Clint Durand Study Type: BILEVEL Sex: Male Study Date: 09/29/2014 Date of : 1950 [facility] #: [id number] Age: 64 Referring Physician: Height: 5'6.5 Sleep Specialist: MARI VIZCAINO M.D. Weight: 318 Recording Tech: MEKA SampsonI: 50.6 Scoring Tech: BRYON GORDILLO SCORING TECHNOLOGIST COMMENTS: ECG:NSR Ectopy: Description of study: CPAP/Bilevel Therapeutic Polysomnography was performed utilizing frontal, central & occipital EEG, EOG, submentalis EMG, oronasal thermocouple, nasal pressure, ECG, thoracic and abdominal inductance plethysmography, right and left anterior tibialis EMG, snore sensor, and pulse oximetry according to AASM established guidelines. Therapeutic Analysis Sleep Architecture Therapeutic Start Time Lights Off: 22:51:43 Total Number of Stage Shifts: 45 Therapeutic End Time Lights On: 06:06:14 Number of Transitions to Stage 1: 15 Total Recording Time 434.5 minutes Total Number of Awakenings: 10 Total Sleep Time (TST): 109.5 minutes Number of REM Periods: 0 Sleep Efficiency: 25.2% REM Latency: - minutes Sleep Onset: 234.0 minutes REM Latency (minus Wake time): - minutes Stage Results Time (min.) % TST Latency (min.) Wake (after sleep onset): 91.0 - - N1: 17.0 15.5 0.0 N2: 69.5 63.5 20.0 N3: 23.0 21.0 58.0 REM: 0.0 0.0 - Spontaneous Arousals* Total NREM REM Count: 10 10 0 Index (events/hr): 5.5 5.5 - * (EEG Arousal activity not associated with Respiratory or PLM events). Respiratory Events Apneas Central Apnea Obstructive Apnea Mixed Apnea Count: 0 2 0 Index (events/hr.): 0.0 1.1 0.0 Mean Duration (sec.): 0 23 0 Longest Event (sec.): 0 23.3 0 REM Count: 0 0 0 NREM Count: 0 2 0 REM Index: 0.0 0.0 0.0 NREM Index 0.0 1.1 0.0 Supine Index 0.0 5.1 0.0 Non-supine Index 0.0 0.0 0.0 Hypopneas and RERAs Hypopnea 4% desat Hypopnea 3% or arousal RERA Count: 4 12 0 Index (events/hr.): 2.2 6.6 0.0 Mean Duration (sec.): 22.0 26.6 0 Longest Event (sec.): 34.9 35.6 0 REM Count: 0 0 0 NREM Count: 4 12 0 REM Index: - - - NREM Index: 2.2 6.6 0.0 Supine Count: 2 10 0 Non-Supine Count: 2 2 0 Supine Index: 5.1 25.5 0.0 Non-supine Index: 1.4 1.4 0.0 Apneas & Hypopneas (by Body-Position) Total Supine Non-Supine Count: 18 14 4 Index (events/hr): 9.9 35.7 2.8 * Results include all hypopneas and apneas. Apneas & Hypopneas (by Body-Position) Total Supine Non-Supine Count: 6 4 2 Index (events/hr): 3.3 10.2 1.4 *Results include only hypopneas with desaturations ? 4% and apneas. RDI (by Body-Position) Total Supine Non-Supine Count: 18 14 4 Index (events/hr): 9.9 35.7 2.8 * Results include all hypopneas, apneas and RERAs. Delta Hoang Breathing (% of TST) 0.0 Body Position by Time Non-Supine Supine Sleep (in minutes) 86.0 23.5 REM (in minutes) 0.0 0.0 NREM (in minutes) 86.0 23.5 Periodic Limb Movements(by Sleep Stages) Total PLMs PLMs w/ Arousals Count Index Count Index Total Sleep: 194 106.3 12 6.6 REM: 0 0.0 0 - NREM: 194 106.3 12 6.6 Wake (after Lights Off): 0 0.0 0 0.0 Oxygen Saturation NREM REM TST Mean SaO2%: 94 - 94 Min. SaO2%: 88 - 88 % Time of SaO2 in range Awake NREM REM Total Sleep 90 - 100%: 91 99 0 99 80 - 89%: 2 0 0 0 70 - 79%: 0 0 0 0 60 - 69%: 0 0 0 0 50 - 59%: 0 0 0 0 < 50%: 0 0 0 0 Total Time (min) SaO2 < 90%: 9.0 0.3 0.0 0.3 Total Time (min) SaO2 < 89%: 7.8 0.1 0.0 0.1 Total Time (min) SaO2 < 88%: 4.5 0.0 0.0 0.0 Heart Rate NREM REM TST Mean HR (bpm): 73 - 73 Min. HR (bpm): 60 - 60 Max. HR (bpm): 94 - 94 A. Titration Analysis Chart (Duration) Pressure Level (cm H2O) Time in Minutes TST REM NREM Supine Non-Supine REM Supine 17/12/0 1 0 1 0 1 0 18/13/0 16 0 16 0 16 0 19/14/0 44 0 44 0 44 0 15/15/0 0 0 0 0 0 0 20/15/0 22 0 22 0 22 0 21/15/0 0 0 0 0 0 0 23/17/0 23 0 23 23 0 0 18/18/0 0 0 0 0 0 0 24/18/0 0 0 0 0 0 0 B. Titration Analysis Chart (Oxygen Saturation) Pressure Level Mean SaO2% Min SaO2% 17/12/0 92 88 18/13/0 93 91 19/14/0 94 93 15/15/0 - - 20/15/0 95 92 21/15/0 95 94 23/17/0 95 89 18/18/0 - - 24/18/0 - - C. Titration Analysis Chart (Respiratory) Pressure Level Respiratory (number) Time in Minutes Respiratory (index) cm H2O Central Apneas Obstructive Apneas Mixed Apneas Hypopnea (4%) Hypopneas (3% or Arousal) RERA AHI* NREM AHI REM AHI RDI Supine AHI* NonSupine AHI 17/12/0 0 0 0 1 2 0 98.6 98.6 0.0 98.6 0.0 98.6 18/13/0 0 0 0 1 1 0 3.6 3.6 0.0 3.6 0.0 3.6 19/14/0 0 0 0 - 0 0 0.0 0.0 0.0 0.0 0.0 0.0 15/15/0 0 0 0 - 0 0 0.0 0.0 0.0 - 0.0 0.0 20/15/0 0 0 0 - 1 0 2.6 2.6 0.0 2.6 0.0 2.6 21/15/0 0 0 0 - 0 0 0.0 0.0 0.0 0.0 0.0 0.0 23/17/0 0 2 0 2 12 0 35.7 35.7 0.0 35.7 35.7 0.0 18/18/0 0 0 0 - 0 0 0.0 0.0 0.0 - 0.0 0.0 24/18/0 0 0 0 - 0 0 0.0 0.0 0.0 - 0.0 0.0 - *Includes all hypopneas and apneas Includes all hypopneas, apneas and RERAs CPAP/BILEVEL TREATMENT REPORT CPAP/Bilevel PLM Body Position documented in this encounter Plan of Treatment Not on filedocumented as of this encounter Visit Diagnoses Diagnosis Obstructive sleep apnea (adult) (pediatr ic) documented in this encounter Care Teams Metalizing Machine Operator Relationship Specialty Start Date End Date Krystal Hill APRN PCP - General 05/28/10 documented as of this encounter
--- OUTSIDE RECORDS SUMMARY | 2022-05-23 00:43 | XMS_ITS | Encounter Summary ---
:1950 Author Organization [facility] Address [address] [place] [address] Care Team Providers Name Role Phone Krystal Hill NP Primary Care Provider Encounter Details Date Type Department Care Team Description 08/22/2020 Lab Requisition [facility] Outr Resulting Lab, Pathology & Laboratory Provider [facility] [address] [place] [address] Social History Tobacco Use Types Packs/Day Years Used Date Smoking Tobacco: Never Assessed Sex Assigned at Date Recorded Not on file documented as of this encounter Plan of Treatment Not on filedocumented as of this encounter Procedures Procedure Name Priority Date/Time Associated Comments Diagnosis PSA TOTAL, Routine 08/21/2020 15:40 Results for this DIAGNOSTIC EST procedure are i n the results section. documented in this encounter Results PSA TOTAL, DIAGNOSTIC (08/21/2020 15:40 EST) P athologist Signature PSA 1.4 0.0 - 6.5 08/22/2020 [facility] ng/mL 16:56 EST CENTER LABORATORY SERVICES Specimen Anatomical Collection Method Collection Time Receive d Time (Source) Location / / Volume Laterality Blood VENOUS BLOOD / 08/21/2020 15:40 Unknown EST 15:36 EST Narrative [facility] - 08/22/2020 16:56 EST NOTE: Serum PSA concentration should not be in terpreted as absolute evidence for the presence or absence of malignant disease. Assayed on Siemens ADVIA Centaur XPT usi ng chemiluminescent technology.??Values obtained by using different assay methods cannot be used interchangeably. Provider Outr Resulting Lab CHEMISTRY & BLOOD GAS MAN ZAMARRIPA Performing Organization Address City/State/ZIP Code Phon e Number [facility] [address] [place] [address] SERVICES documented in this encounter Visit Diagnoses Not on filedocumented in this encounter Care Teams Calender Wind Up Tender Relationship Specialty Start Date End Date Krystal Hill, CAREGIVER ASSISTED LIVING PCP - General 06/11/12 [facility] [address] [place] [address] documented as of this encounter
--- OUTSIDE RECORDS SUMMARY | 2022-05-23 00:43 | XMS_ITS | Encounter Summary ---
:1950 [place] [address] Care Team Providers Name Role Phone Krystal Hill APRN Primary Care Provider Reason for Referral Consultation (Routine) - Closed Specialty Diagnoses / Procedures Referred By Contact Refer red To Contact Sleep Center Diagnoses Obstructive sleep apnea (adult) (pediatric) Connie Vizcaino MD [facility] Sleep Medicine [facility] [address] [place] [address] [place] [address] Referral ID Status Reason Start Date Expiration Date Visits V isits Requested Authorized [id number] Closed Test Only 09/21/2014 09/21/2015 3 3 Scheduling Instructions na Encounter Details Date Type Department Care Team Description 09/21/2014 Office Visit [facility] at [facility]ain[facility] [address] (pediatric) [place], [place] SLEEP DISORDERS [address] CENTER [phone] [place], [place] [address] (Wo rk) Social History Tobacco Use Types Packs/Day Years Used Date Smoking Tobacco: Every Day Cigarettes 1 Sex Assigned at Date Recorded Not on file documented as of this encounter Last Filed Vital Signs Vital Sign Reading Time Taken Comments Blood Pressure 112/60 09/21/2014 2:14 PM EDT Pulse 88 09/21/2014 2:14 PM EDT Temperature - - Respiratory Rate - - Oxygen Saturation 97% 09/21/2014 2:14 PM EDT Inhaled Oxygen Concentration - - Weight 143.3 kg (316 lb) 09/21/2014 2:14 PM EDT Height 168.9 cm (5' 6.5) 09/21/2014 2:14 PM EDT Body Mass Index 50.24 09/21/2014 2:14 PM EDT documented in this encounter Progress Notes Connie Vizcaino MD - 09/21/2014 2:37 PM EDT Sleep Medicine Consultation Note HPI: Clint Durand is a 64 y.o. male seen at the request of Krystal Hill for advice regarding obstructive sleep apnea. Has history of severe BREANNA. Had been on high level CPAP for a number of years; last seen in 2009. C/o feeling like not getting good sleep despite using CPAP regularly. No problems initiating sleep. Feels like he has trouble staying asleep. This has been present for a while; had been very bad a few months but seems like back to baseline now. Denies difficulty with racing thoughts or having things on his mind. Feels like his disrupted sleep may be due to discomfort from the CPAP as well as from other aches and pains. Uses CPAP regularly. Uses FFM - replaces regularly. Feels like has to keep mask very tight so that it doesn't leak, but the straps cut into him. No pressure intolerance. Mr. Durand is also reporting increased daytime sleepiness. Feels like sleepiness has increased overthe past year. Had gotten better after last PAP retitration (which was in 2009). Sleepiness overall improved on CPAP - used to fall asleep driving before CPAP and now is able to drive without falling sleep driving. Does fall asleep unintentionally after he eats. Tiredness worse if his nocturnal sleep is worse. Not working, not very active during the day. Sleep Pattern: Bed/Recliner/Wedge: bed Bedtime: 12-1am Lights out: immediately Latency: rapid Awakenings: 2-3x Duration: brief; tosses and turns, in and out of sleep Reason: discomfort Wake time: spontaneously between 8-10am; rarely will sleep until noon Respiratory: Snoring: not sure - sleeps in another room; he has caught himself snoring with the CPAP on Observed Apneas: not with CPAP Mouth Breathing: tries to breathe through nose Dry Mouth: occasionally with CPAP Nocturnal Gasping: he has not woken up gasping or choking Nasal Obstruction: no Daytime Symptoms: Anabel: 12 Upon Awakening: usually unrefreshed Naps: most days naps 2-3 hrs Involuntary Dozing: yes: especially after lunch Driving: denies Close calls related to sleepiness denies Accidents related to sleepiness denies Other Associates Sleep Symptoms: Parasomnias: Sleep Walking: no Dream Enactment: has awoken moving from dream content; has not injured self or gotten out of bed Motor: RLS: no PLMS: no Family History: Family history of sleep disorders: father and multiple uncles snored very loudly ROS: CON: weight change: has gained approx 35# since sleep study in 2009 - at highest weight ENT: nasal obstruction: no PUL: CAI: no CV: chest pain: no Palpitations: no LE edema: yes - has been stable GI: GERD: controlled with meds : Nocturia: no MSK: Pain: upper back, neck pain NEURO: sleep related headaches: no ALL: neg PSY: Depression: denies anxiety: denies Past Medical History: Past Medical History Diagnosis Date ??? BREANNA (obstructive sleep apnea) ??? GERD (gastroesophageal reflux disease) ??? Hyperlipidemia ??? Lymphedema of right lower extremity s/p trauma ??? Hypertension Past Surgical History Procedure Laterality Date ??? Prostate surgery Medications: Outpatient Prescriptions Marked as Taking for the 09/21/14 encounter (Office Visit) with Connie Vizcaino MD Medication Sig Dispense Refill ??? citalopram (CELEXA) 40 mg Tablet Take 40 mg by mouth nightly. ??? Levalbuterol Tartrate 45 mcg/actuation HFA Aerosol Inhaler Inhale 1-2 puffs into the lungs every4 hours as needed. ??? fluticasone (FLOVENT HFA) 110 mcg/actuation HFA Aerosol Inhaler Inhale 1 puff into the lungs as needed. ??? ipratropium (ATROVENT HFA) 17 mcg/actuation HFA Aerosol Inhaler Inhale 2 puffs into the lungs asneeded. ??? lisinopril (PRINIVIL;ZESTRIL) 10 mg tablet ??? Pantoprazole (PROTONIX) 40 mg SuDR ??? simvastatin (ZOCOR) 20 mg tablet ??? furosemide (LASIX) 40 mg tablet (Patient taking differently: daily, not sure of dose) ??? 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 Alcohol: none Smokin PPD Caffeine: 1-2 cups coffee qd Other drugs: denies PE: BP 112/60 Pulse 88 Ht 168.9 cm (5' 6.5) Wt 143.337 kg (316 lb) BMI 50.25 kg/m2 SpO2 97% General: alert, no distress Eyes: PERRL, conjunctiva clear ENT: oropharynx MP: 3 Crowded: narrow Dentition: no dentition Mandibular structure and position: normal NECK: Submental fat present: Yes Supple, no LAD, no thyroid enlargement LUNGS: respirations even and unlabored, CTAB CV: RRR, no m/g/r, no c/c, 2-3+ LE edema bilat, L> R ABD: obese, BS+, soft, NT, not able to palpate liver, spleen SKIN: warm and dry NEURO: gait and station normal, no tremor MSE: Alert and appropriate: yes Oriented to person, place and time: yes Affect: full range Mood: pretty good Judgement and insight intact Compliance download reviewed: Dates: 06/23/14-09/20/14 Pressure: 18cm Percent days used: 100% Average usage days used: 8+ hrs Average residual AHI: 3 Leak: generally controlled Assessment: Clint Durand is a 64 y.o. male with a history of severe obstructive sleep apnea. He presents forreevaluation for increasing daytime sleepiness despite treatment with CPAP. He has excellent adherence to CPAP with evidence of reasonable control of obstructive events on compliance download, althoughthis does not necessarily fully reflect BREANNA control. Further, he is having increasing tolerance difficulties particularly centered on the mask interface. The high CPAP pressures require that he tightenthe mask to the point of significant discomfort. Given the increased daytime sleepiness, tolerance problems and weight gain, we discussed that it would be appropriate to perform a PAP retitration. If we cannot identify an appropriately fitting mask interface at the high pressures he requires or if there is residual BREANNA at high level CPAP, we discussed converting to BiPAP therapy. We also discussed that he regularly takes prolonged daytime naps which can also impact his nocturnalsleep quality. Questions regarding diagnosis and management answered at this time. Recommendations: 1. CPAP re-titration; convert to BiPAP for intolerance or persistent BREANNA on CPAP at 18cm 2. Role of weight loss reviewed 3. Decrease or eliminate daytime napping documented in this encounter Plan of Treatment Scheduled Referrals Name Type Priority Associated Diagnoses Order S chedule Referral to Sleep Outpatient Referral Routine Obstructive slee p Ordered: [facility] apnea (adult) 09/21/2014 (pediatric) documented as of this encounter Visit Diagnoses Diagnosis Obstructive sleep apnea (adult) (pediatr ic) documented in this encounter Care Teams Tattooer Relationship Specialty Start Date End Date Krystal Hill APRN PCP - General 05/28/10 documented as of this encounter
--- OUTSIDE RECORDS SUMMARY | 2022-05-23 00:43 | XMS_ITS | Encounter Summary ---
:1950 Author Organization [facility] Address [address] [place] [address] Care Team Providers Name Role Phone Krystal Hill NP Primary Care Provider Encounter Details Date Type Department Care Team Description 07/12/2020 Lab Requisition [facility] Outr Resulting Lab, Pathology & Laboratory Provider [facility] [address] [place] [address] Social History Tobacco Use Types Packs/Day Years Used Date Smoking Tobacco: Never Assessed Sex Assigned at Date Recorded Not on file documented as of this encounter Plan of Treatment Not on filedocumented as of this encounter Procedures Procedure Name Priority Date/Time Associated Diagnosis Comme nts COVID-19 TEST [facility] Today 07/12/2020 13:00 LAB PCR EST COVID-19 TESTING Routine 07/12/2020 13:00 Results for this EST procedure are i n the results section. documented in this encounter Results COVID-19 TEST [facility] LAB PCR (07/12/2020 13:00 EST) Specimen Anatomical Location Collection Method Collection Time Received Time (Source) / Laterality / Volume Swab ENTIRE NASOPHARYNX 07/12/2020 13:00 07/12 / Unknown EST 20:03 EST Provider Outr Resulting Lab MICROBIOLOGY - GENERAL ORD ERABLES Performing Organization Address City/State/ZIP Code Phon e Number [facility] CENTER LABORATORY [address] [place] [address] SERVICES COVID-19 TESTING (07/12/2020 13:00 EST) Analysis Performed At Patho logist Time Signature COVID-19 Negative Negative 07/14/2020 [facility] MED[facility] rt-PCR Result 10:41 EST CENTER LABORATORY SERVICES Comment: Negative results do not preclude 2019-nC oV infection and should not be used as the sole basis for treatment or other patient management decisions. Negative results must be combined with clinical observa tions, patient history, and epidemiologi mora information. This test was developed and its performa nce characteristics determined by [facility]. It has not been cleared or approved by the US Food and Drug Administration. FDA does not require this test to go through premarket FDA review. This test is used for clinical purposes. It should not be regarded as investigational or for research. This laboratory is certified under the Clinical Laboratory Improvement Amendm ents (CLIA) as qualified to perform high complexity clinical laboratory testing. This test is based on the [facility] COVID-19 E mergency Use Authorization (EUA) assay, with minor modification as defined by the FDA Performed on the [employer] Flex. Performing Lab [facility] Lab 07/14/2020 10:41 EST [facility]ORATORY SERVICES Specimen Anatomical Collection Method Collection Time Receive d Time (Source) Location / / Volume Laterality Swab 07/12/2020 13:00 07/12/2020 EST 20:03 EST Provider Outr Resulting Lab MICROBIOLOGY - GENERAL ORD ERABLES Performing Organization Address City/State/ZIP Code Phon e Number [facility] LAB[facility]ATORY [address] [place] [address] SERVICES documented in this encounter Visit Diagnoses Not on filedocumented in this encounter Care Teams Dental Laboratory Technician Relationship Specialty Start Date End Date Krystal Hill NP PCP - General 06/11/12 [facility] [address] [place], [place] [address] documented as of this encounter
--- OUTSIDE RECORDS SUMMARY | 2022-05-23 00:43 | XMS_ITS | Encounter Summary ---
:1950 [place] [address] Care Team Providers Name Role Phone Krystal Hill APRN Primary Care Provider Encounter Details Date Type Department Care Team Description 09/21/2014 Orders Only Sleep Center at [facility] Gasper Vizcaino MD [facility] [address] [facility] [place] [address] [place] [address] [phone] (Wo rk) Social History Tobacco Use Types Packs/Day Years Used Date Smoking Tobacco: Every Day Cigarettes 1 Sex Assigned at Date Recorded Not on file documented as of this encounter Progress Notes Connie Vizcaino MD - 09/21/2014 3:03 PM EDT Polysomnogram Order Form Room # Technologist Assignment: To be read by on PSG Patient Information Date of study: : 1950 Name: Clint Durand Height: 66.5in Weight: 316# 64 y.o. male Normal sleep hours: MN-9am Arrival Time: Physical/Mobility Limitations: No Cognitive Limitations: No Requires Male Tech: No Requires Female Tech: No Requires 1:1 Care: No Requires Parent/Caregiver: [place] of Parent/Caregiver staying: Using Home Oxygen: No At home sleeps in: Bed PSG Indications: h/o severe BREANNA, has been using CPAP at 18cm but has increased EDS and mask fit issues -- reevalute PAP needs Other Medical Conditions: htn, chronic LE edema, GERD PSG Orders Type of study: CPAP retitration; Low threshold to change to BiPAP (see below) Additional data required: no Special instructions: YES 1. Assess mask fit; Patient has problems with mask being so tight it leaves flores. May need mask refit 2. Begin CPAP at 18cm (patient's current pressure). If has residual BREANNA or cannot get mask to fit comfortably, then switch to BiPAP. Start BiPAP at 17/12cm *Initiate CPAP/BPAP/oxygen per previously determined protocols unless otherwise specified. documented in this encounter Plan of Treatment Not on filedocumented as of this encounter Visit Diagnoses Not on filedocumented in this encounter Care Teams Steam Shovel Operating Engineer Relationship Specialty Start Date End Date Krystal Hill APRN PCP - General 05/28/10 documented as of this encounter
--- OUTSIDE RECORDS SUMMARY | 2022-05-23 00:43 | XMS_ITS | Encounter Summary ---
:1950 Author Organization [facility] Address [address] [place] [address] Care Team Providers Name Role Phone Krystal Hill NP Primary Care Provider Encounter Details Date Type Department Care Team Description 07/06/2020 Lab Requisition [facility] Center Outr Resulting Lab, Pathology & Laboratory Provider [facility] [address] [place] [address] Social History Tobacco Use Types Packs/Day Years Used Date Smoking Tobacco: Never Assessed Sex Assigned at Date Recorded Not on file documented as of this encounter Plan of Treatment Not on filedocumented as of this encounter Procedures Procedure Name Priority Date/Time Associated Diagnosis Comme nts COVID-19 TEST [facility] Today 07/05/2020 15:00 LAB PCR EST COVID-19 TESTING Routine 07/05/2020 15:00 Results for this EST procedure are i n the results section. documented in this encounter Results COVID-19 TEST [facility] PCR (07/05/2020 15:00 EST) Specimen Anatomical Location Collection Method Collection Time Received Time (Source) / Laterality / Volume Swab ENTIRE NASOPHARYNX 07/05/2020 15:00 07/08 0:42 / Unknown EST EST Provider Outr Resulting Lab MICROBIOLOGY - GENERAL ORD ERABLES Performing Organization Address City/State/ZIP Code Phon e Number [facility] [address] [place] [address] SERVICES COVID-19 TESTING (07/05/2020 15:00 EST) Analysis Performed At [facility] Time Signature COVID-19 Negative Negative 07/08/2020 [facility] MEDICAL rt-PCR Result 13:15 EST CENTER LABORATORY SERVICES Comment: This test has not been FDA cleared or ap proved. This test has been authorized by FDA under an EUA for use by authorized laboratories. This test has been authorized only for detection of nucleic acid fro m 2019-nCoV, not for any other viruses o r pathogens. This test is only authorized for the duration of the declaration that circumstances exist justifying the authorization of emergency use of in vitro d iagnostic tests for detection and/or michael gnosis of 2019-nCoV under section 564(b)(1) of Act, 21 U.S.C ?? 360bbb-3(b) (1), unless the authorization is terminated or revoked sooner. Negative results do not preclude 2019-nC oV infection and should not be used as the sole basis for treatment or other patient management decisions. Negative results must be combined with clinical observa tions, patient history, and epidemiologi mora information. Performed on the X-IO instrument Performing Lab [facility] Lab 07/08/2020 13:15 EST [facility] SERVICES Specimen Anatomical Collection Method Collection Time Receive d Time (Source) Location / / Volume Laterality Swab 07/05/2020 15:00 07/08/2020 0:42 EST EST Provider Outr Resulting Lab MICROBIOLOGY - GENERAL ORD ERABLES Performing Organization Address City/State/ZIP Code Phon e Number [facility] [address] [place] [address] SERVICES documented in this encounter Visit Diagnoses Not on filedocumented in this encounter Care Teams Cable Installer Repairer Helper Relationship Specialty Start Date End Date Krystal Hill NP PCP - General 06/11/12 [facility] [address] [place], [place] [address] documented as of this encounter
--- OUTSIDE RECORDS SUMMARY | 2022-05-23 00:43 | XMS_ITS | Encounter Summary ---
:1950 [place] [address] Care Team Providers Name Role Phone Krystal Hill APRN Primary Care Provider Encounter Details Date Type Department Care Team Description 10/13[facility]2014 [facility] [address] (pediatric) [place], [place] SLEEP DISORDERS [address] CENTER [phone] [place] [id number] (Wo rk) Social History Tobacco Use Types Packs/Day Years Used Date Smoking Tobacco: Every Day Cigarettes 1 Sex Assigned at Date Recorded Not on file documented as of this encounter Plan of Treatment Not on filedocumented as of this encounter Visit Diagnoses Diagnosis Obstructive sleep apnea (adult) (pediatr ic) documented in this encounter Care Teams Supervisor Cured Meats Relationship Specialty Start Date End Date Krystal Hill APRN PCP - General 05/28/10 documented as of this encounter
--- OUTSIDE RECORDS SUMMARY | 2022-05-23 00:43 | XMS_ITS | Encounter Summary ---
:1950 Author Organization [facility] Address [address] [place] [address] Care Team Providers Name Role Phone Krystal Hill NP Primary Care Provider Encounter Details Date Type Department Care Team Description 09/14/2019 Lab Requisition [facility] Unknown, Provider, Pathology & Laboratory [facility] [address] [place] [address] [place] [address] Social History Tobacco Use Types Packs/Day Years Used Date Smoking Tobacco: Never Assessed Sex Assigned at Date Recorded Not on file documented as of this encounter Plan of Treatment Not on filedocumented as of this encounter Procedures Procedure Name Priority Date/Time Associated Comments Diagnosis PSA TOTAL, Routine 09/13/2019 15:00 Results for this DIAGNOSTIC EDT procedure are i n the results section. documented in this encounter Results PSA TOTAL, DIAGNOSTIC (09/13/2019 15:00 EDT) P athologist Signature PSA 1.2 0.0 - 4.5 09/15/2019 [facility] ng/mL 10:03 EDT CENTER LABORATORY SERVICES Specimen Anatomical Collection Method Collection Time Receive d Time (Source) Location / / Volume Laterality Blood VENOUS BLOOD / 09/13/2019 15:00 0 Unknown EDT 15:41 EDT Narrative [facility] SERVICES - 09/15/2019 10:03 EDT NOTE: Serum PSA concentration should not be in terpreted as absolute evidence for the presence or absence of malignant disease. Assayed on Siemens ADVIA Centaur XPT usi ng chemiluminescent technology.??Values obtained by using different assay methods cannot be used interchangeably. Provider Unknown CHEMISTRY & BLOOD GAS ORDERA BLES Performing Organization Address City/State/ZIP Code Phon e Number [facility] [address] [place] [address] SERVICES documented in this encounter Visit Diagnoses Not on filedocumented in this encounter Care Teams Paediatric Thoracic Physician Relationship Specialty Start Date End Date Krystal Hill, ROBYN PCP - General 06/11/12 [facility] [address] [place] [address] documented as of this encounter
--- OUTSIDE RECORDS SUMMARY | 2022-05-23 00:43 | XMS_ITS | Encounter Summary ---
:1950 Author Organization [facility] [place] [address] Care Team Providers Name Role Phone Krystal Hill APRN Primary Care Provider Reason for Visit Reason Comments Patient Not Seen Encounter Details Date Type Department Care Team Description 07/12/2015 Office Visit [facility] Center at [facility] [address] CHIEF MEDICAL OFFICER ENCOUNTER [address] [place] [address] Social History Tobacco Use Types Packs/Day Years Used Date Smoking Tobacco: Every Day Cigarettes 1 Sex Assigned at Date Recorded Not on file documented as of this encounter Progress Notes [facility] CRTT - 07/12/2015 10:11 AM EST Patient not seen documented in this encounter Plan of Treatment Not on filedocumented as of this encounter Visit Diagnoses Diagnosis DH ERRONEOUS ENCOUNTER documented in this encounter Care Teams Imagery Analyst Relationship Specialty Start Date End Date Krystal Hill APRN PCP - General 05/28/10 documented as of this encounter
--- OUTSIDE RECORDS SUMMARY | 2022-05-23 00:43 | XMS_ITS | Encounter Summary ---
:1950 Author Organization [facility] Address [address] [place] [address] Care Team Providers Name Role Phone Unknown, Provider Primary Care Provider Encounter Details Date Type Department Care Team Description 06/09/2012 Results Only [facility] Kev Blanca MD [phone] [address] [facility] [address] [place] [address] (Wo rk) Social History Tobacco Use Types Packs/Day Years Used Date Smoking Tobacco: Never Assessed Sex Assigned at Date Recorded Not on file documented as of this encounter Plan of Treatment Not on filedocumented as of this encounter Procedures Procedure Name Priority Date/Time Associated Diagnosis Comme nts CYTOPATHOLOGY Routine 06/09/2012 0:00 EST Results for this procedure are i n the results section . documented in this encounter Results CYTOPATHOLOGY (06/09/2012 0:00 EST) Component Value Ref Test Analysis Performed At [facility] Method Time Signature Pathology CYTOPATHOLOGY REPORT LI Report: [facility] Reports generated via electronic interface contain original data; however they are lacking the format of the original report. Caution should be taken when reading/interpreting unformatte d reports. Name: ? QUINTON DURAND ? Accession #: ? [id number] : ? 1950 (Age: 62) ??M ?Collect Date: ? 06/09/2012 Location: ? [facility] ? Receive Date: ? 06/10/2012 Provider: ? KEV BLANCA MD Copy to: ?DOTTIE DUARTE ACTIVITY COORDINATOR ? CYTOLOGIC DIAGNOSIS: ? Urine, voided, cytologic evaluation: 1. ?Negative for malignant cells. 2. ? Rare red cells present. Document reviewed and electronically signed by: ? MAMADOU ALEJANDRE MD Report Date: ??06/11/2012 15:44 By the signature above, the attending physician certifies th at he/she has personally conducted a gross and/or microscopic examin ation of the described specimens and rendered or confirmed the above diagnosis. Specimen Type: ? Urine, Voided Clinical History: ? Hematuria. ??clinical diagnosis code: ??599.70 ? Gross Description: ? One vial of Cytolyt was received and processed by s elective cellular enhancement technique. ? End of Report Specimen (Source) Anatomical Collection Method Collection Time Re ceived Time Location / / Volume Laterality 06/09/2012 06/10/2012 8:40 EST Kev Blanca MD PATHOLOGY ORDERABLES Performing Organization Address City/State/ZIP Code Phon e Number [facility] [address] [place] [address] SERVICES [facility] [address] [place] [address] documented in this encounter Visit Diagnoses Not on filedocumented in this encounter Care Teams Livestock Farm Manager Relationship Specialty Start Date End Date Unknown, Provider, PCP - General 06/10/12 06/10/12 documented as of this encounter
--- OUTSIDE RECORDS SUMMARY | 2022-05-23 00:43 | XMS_ITS | Encounter Summary ---
:1950 Author Organization [facility] [place] [address] Care Team Providers Name Role Phone Krystal Hill APRN Primary Care Provider Reason for Visit Reason Onset Date Comments Other 10/09/2014 Encounter Details Date Type Department Care Team Description 10/09/2014 Telephone Sleep Center at [facility] Connie Vizcaino MD Other [address] [facility] [place] [address] SLEEP DISORDERS CENTER [phone] [place], [place] [address] (Wo rk) Social History Tobacco Use Types Packs/Day Years Used Date Smoking Tobacco: Every Day Cigarettes 1 Sex Assigned at Date Recorded Not on file documented as of this encounter Miscellaneous Notes Telephone Encounter - Connie Vizcaino MD - 10/13/2014 5:17 PM EDT Also discussed Pad-a-cheek liners and neck pads and gave him the website info. Telephone Encounter - Connie Vizcaino MD - 10/13/2014 5:08 PM EDT Spoke with patient. He had a difficult night with the BiPAP, mainly due to problems getting the maskto fit correctly. He's not really sure if the BiPAP was any better or worse than his CPAP. Main complaint is that he has been having difficulty getting mask to fit comfortably and the straps in the back of his head bother his neck. He stated that when he got home, he put some padding under the strap behind his head and felt that this improved comfort significantly and his mask was no longer leaking. He feels that he could tolerate the higher CPAP pressure now. We discussed increasing CPAP to 19cm. If leak is problematic, we can then try BiPAP 19/14cm. Mr. Durand agreeable with this plan. documented in this encounter Plan of Treatment Not on filedocumented as of this encounter Visit Diagnoses Not on filedocumented in this encounter Care Teams Hand Stitcher Relationship Specialty Start Date End Date Krystal Hill APRN PCP - General 05/28/10 documented as of this encounter
--- OUTSIDE RECORDS SUMMARY | 2022-05-23 00:43 | XMS_ITS | Clinical Summary ---
:1950 Author Organization [facility] [place] [address] Care Team Providers Name Role Phone Krystal Hill APRN Primary Care Provider Allergies No known active allergies Medications Medication Sig Dispensed Refills Start Date End Date Status lisinopril 0 07/30/2010 Active (PRINIVIL;ZESTRIL) 10 mg tablet Pantoprazole (PROTONIX) 0 07/30/2010 Active 40 mg SuDR simvastatin (ZOCOR) 20 0 07/30/2010 Active mg tablet furosemide (LASIX) 40 0 07/30/2010 Active mg tablet hydroCODone-acetaminoph 0 07/30/2010 Active en (VICODIN) 5-500 mg per tablet citalopram (CELEXA) 40 Take 40 mg by 0 Active mg Tablet mouth nightly. Levalbuterol Tartrate Inhale 1-2 puffs 0 Active 45 mcg/actuation HFA into the lungs Aerosol Inhaler every 4 hours as needed. fluticasone (FLOVENT Inhale 1 puff 0 Active HFA) 110 mcg/actuation into the lungs as HFA Aerosol Inhaler needed. ipratropium (ATROVENT Inhale 2 puffs 0 Active HFA) 17 mcg/actuation into the lungs as HFA Aerosol Inhaler needed. Active Problems Problem Noted Date BREANNA (obstructive sleep apnea) GERD (gastroesophageal reflux disease) Hyperlipidemia Lymphedema of right lower extremity Overview: s/p trauma Hypertension Social History Tobacco Use Types Packs/Day Years Used Date Smoking Tobacco: Every Day Cigarettes 1 Sex Assigned at Date Recorded Not on file Last Filed Vital Signs Vital Sign Reading Time Taken Comments Blood Pressure 126/68 09/29/2014 8:00 PM EDT Pulse 90 09/29/2014 8:00 PM EDT Temperature - - Respiratory Rate - - Oxygen Saturation 97% 09/21/2014 2:14 PM EDT Inhaled Oxygen Concentration - - Weight 144.2 kg (318 lb) 09/29/2014 8:00 PM EDT Height 168.9 cm (5' 6.5) 09/29/2014 8:00 PM EDT Body Mass Index 50.56 09/29/2014 8:00 PM EDT Plan of Treatment Health Maintenance Due Date Last Done Comments Covid-19 Vaccine (#1) 1950 Pneumoccocal Vaccine: 65+ (1 - PCV) 1956 Hepatitis C Screening 1968 Tdap adult 1969 Tetanus vaccine 1969 Colonoscopy 1995 Zoster vaccine (1 of 2) 2000 Advance Directive 2005 AAA Screen 2015 Influenza (Flu) vaccine (1 of 1 - Influenza standard 03/06/2022 series) Insurance Payer Benefit Plan / Subscriber ID Effective Dates Phone Addre ss Type Group MEDICARE MEDICARE PART [id number] 2019-Presen [id number] [place] [address] [place] [id number] Effective for [phone] [address] all dates [address] [place] [address] Care Teams Camera Repair Technician Relationship Specialty Start Date End Date Krystal Hill APRN PCP - General 05/28/10
--- NOTE | 2022-05-23 07:45 | DI.CTLCSR_ITS ---
Exam(s) CT CHEST LUNG CANCER SCREEN EXAM: CT CHEST LUNG CANCER SCREEN CLINICAL HISTORY: Screening for lung cancer,current smoker, f17.210. TECHNIQUE: Imaging Protocol: Low Dose Technique CONTRAST MATERIAL: None COMPARISON: CT CT CHEST LUNG CANCER SCREEN from 05/04/[address] CHEST LUNG CANCER SCREEN from 05/13/2021 FINDINGS: CHEST: LUNGS: There are no new ominous pulmonary nodules. Chronic pleural thickening and pleural based scarr ing again noted. No pleural effusions. No new findings in trachea and mainstem bronchi. MEDIASTINUM: There is no obvious hilar nor mediastinal adenopathy. CARDIAC: Heart size is normal. There is no pericardial effusion.Caliber of the thoracic aorta is wit hin normal limits. OTHER: OSSEOUS: No significant osseous lesions.. IMPRESSION: 1. No new significant pulmonary nodules. 2. No pleural effusions. No intrathoracic adenopathy. 3. Lung RADS Cat 2 - Benign Appearance / Behavior: Nodules with a very low likelihood of becoming a c linically active cancer due to size or lack of growth Lung-RADS 1.0 CATEGORIES: Category 0 - Prior chest CT exam(s) being located for comparison. Category 1 - Annual screening in 12 months. No nodules or definitely benign nodules. Category 2 - Annual screening in 12 months. Benign appearance. Nodules with low likelihood of becomin g active cancer. Category 3 - 6-month follow-up. Probably benign. Short-term follow-up suggested. Nodules with low lik elihood of becoming active cancer. Category 4A - 3-month follow-up and CT/PET if >8 mm in size. Suspicious finding. Findings which requi re additional testing. Category 4B - Findings which require additional testing and tissue sampling. Category 4X - Category 3 or 4 nodules with additional features or imaging findings that increases the suspicion of malignancy. Modifier S- Potentially clinically significant findings (non lung cancer) RADIATION DOSE DELIVERED: Total DLP !Error CTDIvol DATA REPOSITORY: All CT scans at this facility are submitted to the National Radiology Data Registry (NRDR) Dose Index Registry (DIR) with the [employer] (ACR). RADIATION OPTIMIZATION: All CT scans at this facility use at least one of these dose optimization te chniques: automated exposure control; mA and/or kV adjustment per patient size (includes targeted exa ms where dose is matched to clinical indication); or iterative reconstruction.
== END 2022-05-23 01:01 ==
LOC: DI 00:41
PROVIDERS: PCP Nurse Practitioner Family; Visit Provider Student in an Organized Health Care Education/Training Program
DX: F17.210 Nicotine dependence, cigarettes, uncomplicated (principal); Z12.2 Encounter for screening for malignant neoplasm of respiratory organs
CPT/HCPCS: 71271

== ENCOUNTER 2022-08-20 16:06 | Outpatient (REF) | payer MEDICARE, SELFPAY ==
[2022-08-20 20:44] LABS: ALT 24 U/L (16-63); AST 16 U/L (15-37); HDL Cholesterol 42 mg/dL (40-60); LDL CHOLESTEROL 108 mg/dL (<100)
[2022-08-20 21:00] LABS: Creatine Kinase 59 U/L (39-308)
== END 2022-08-20 16:07 | disposition home or self-care (01) ==
LOC: NCHCN 16:06
PROVIDERS: PCP Nurse Practitioner Family; Visit Provider Nurse Practitioner Family
DX: E78.5 Hyperlipidemia, unspecified (principal); R06.09 Other forms of dyspnea
CPT/HCPCS: 82550; 83721; 83718; 84450; 84460

== ENCOUNTER 2022-10-02 14:09 | Outpatient (RCR) | payer MEDICARE, SELFPAY ==
--- NOTE | 2022-10-02 14:00 | HOLTER_ITS ---
APPROVED REPORT Conclusion This is a 48-hour Holter monitor ordered for exertional shortness of breath Rhythm throughout was sinus. Average heart rate was 76. Minimum was 60, maximum 115 There were rare isolated ventricular ectopic beats. There was 1 ventricular triplet There were rare isolated atrial premature beats There were 2 self-limited atrial runs, 3 and 4 beats in duration There was no atrial fibrillation no high-grade AV block no pauses greater than 3 seconds No patient symptoms were reported
== END 2022-10-03 23:59 | disposition home or self-care (01) ==
LOC: CARDOPNVT 14:09
PROVIDERS: PCP Nurse Practitioner Family; Visit Provider Nurse Practitioner Family
DX: R06.02 Shortness of breath (principal); I49.1 Atrial premature depolarization
CPT/HCPCS: 93225

== ENCOUNTER 2022-10-09 07:00 | Outpatient (RCR) | payer MEDICARE, SELFPAY | END 2022-10-09 07:20 | LOC: CARDOPNVT 07:00 | PROVIDERS: PCP Nurse Practitioner Family; Visit Provider Nurse Practitioner Family | DX: R06.02 Shortness of breath (principal); I49.1 Atrial premature depolarization | CPT/HCPCS: 93227; 93226 ==

== ENCOUNTER 2022-10-27 18:37 | Outpatient (REF) | payer MEDICARE, SELFPAY ==
[2022-10-27 20:15] LABS: Anion Gap 5.2 mmol/L (3-11); BUN 20 mg/dL (7-18); CO2 29.8 mmol/L (21.0-32.0); Calcium 9.2 mg/dL (8.5-10.1); Chloride 104 mmol/L (98-107); Estimated GFR 79.97 (mL/min/1.73m2); Glucose 105 mg/dL (74-106); Potassium 4.4 mmol/L (3.5-5.1); Sodium 139 mmol/L (136-145)
[2022-10-27 20:40] LABS: Hemoglobin A1C 6.1 % (<5.7)
== END 2022-10-27 18:38 | disposition home or self-care (01) ==
LOC: NCHCN 18:37
PROVIDERS: PCP Nurse Practitioner Family; Visit Provider Family Medicine
DX: I50.9 Heart failure, unspecified (principal); R73.09 Other abnormal glucose
CPT/HCPCS: 80048; 83036

== ENCOUNTER → 2022-12-15 14:48 | Outpatient (BNVA) | payer MEDICARE, SELFPAY | PROVIDERS: PCP Nurse Practitioner Family; Referring Provider Nurse Practitioner Family; Visit Provider Urology | DX: N40.1 Benign prostatic hyperplasia with lower urinary tract symptoms (principal); N13.8 Other obstructive and reflux uropathy; R31.0 Gross hematuria; R97.20 Elevated prostate specific antigen [PSA] | CPT/HCPCS: 36415; 99213 ==

== ENCOUNTER 2022-12-15 15:20 | Outpatient (REF) | payer MEDICARE, SELFPAY ==
[2022-12-16 19:50] LABS: PSA, Diagnostic 1.4 ng/mL (<=6.5)
== END 2022-12-15 15:21 | disposition home or self-care (01) ==
LOC: LBN 15:20
PROVIDERS: PCP Nurse Practitioner Family; Visit Provider Urology
DX: R97.20 Elevated prostate specific antigen [PSA] (principal)
CPT/HCPCS: 84153

== ENCOUNTER 2023-01-01 11:04 | Outpatient (CLI) | payer MEDICARE, SELFPAY ==
--- NOTE | 2023-01-01 | DI.US_ITS ---
APPROVED REPORT EXAM: Comprehensive 2D, Doppler, and color-flow Echocardiogram Patient Location: Out-Patient Transport Truck Driver: Celio Johnston RDMS, RVT Indications: CHF, worsening CAI, edema Other Information Study Quality: Fair. Technically limited study due to body habitus. Conclusion Normal left ventricular wall thickness and chamber size. Ejection fraction is 55%. Septal motion is consistent with an intraventricular conduction delay Right ventricle is mildly dilated. Systolic function appears normal Both atria are mildly dilated There is no structural or hemodynamically significant valvular disease identified Right ventricular systolic pressure could not be estimated Wall motion Left Ventricle The left ventricle is normal size. Left ventricular systolic function is normal There is normal left ventricular wall thickness. Paradoxical septal motion consistent with conduction abnormality. There i s no ventricular septal defect visualized. LVEF is 55%. Right Ventricle Right ventricle is mildly dilated. Right ventricular systolic function is grossly normal. Unable to a ssess PA pressure. Atria The left atrium size is mildly dilated Right atrium is mildly dilated. The interatrial septum is inta ct with no evidence for an atrial septal defect. Aortic Valve The aortic valve is normal in structure. Aortic valve is trileaflet. There is no aortic valvular sten osis. No aortic regurgitation is present. Mitral Valve The mitral valve is normal in structure. No evidence of mitral valve stenosis. Trace mitral regurgita tion. Tricuspid Valve The tricuspid valve is normal in structure. There is no tricuspid valve stenosis. Trace tricuspid reg urgitation. Pulmonic Valve The pulmonary valve is normal in structure. There is no pulmonic valvular stenosis. There is no pulmo jonathan valvular regurgitation. Great Vessels The aortic root is normal in size. The ascending aorta is normal in size. Aortic arch is not well vis ualized. IVC is normal in size and collapses >50% with inspiration. Pericardium There is no pericardial effusion. 2D Dimensions IVSD d PLAX 0.58 cm M: 0.6-1.2 LV Vol A2C d MOD 167.2 mL LVPW d PLAX 0.58 cm M: 0.6 - 1.2 LV Vol A4C d MOD 114.8 mL LVID d PLAX 5.76 cm M: 4.2 - 5.8 LV EF A4C MOD 51.6 % LVDs 3.80 cm M: 2.5 - 4.0 LV EF A2C MOD 51.5 % Ao Root d 2.70 cm M: 3.1 - 3.7 LV EF Biplane MOD 52.9 % Ao Asc Diam d 2.90 cm M: 2.6 - 3.4 SV 75.71 mL LV EF Teichholz 61.9 % SV Index 29.81 mL/m2 LVEF (Hall's) 52.94 % M: 52 - 72 LV Volume 99.67 mL M: 62 - 150 LV Volume Index 39.24 mL/m2 M: 34 - 74 LV Vol Biplane MOD 143.0 mL FS 33.75 % M-Mode TAPSE 3.11 cm (M/F) >1.7 LV Diastology MV E' medial 0.158 (>0.07 m/s) E/A Ratio 0.9 LV E/e MED 5.50 (<14) MV E Vmax 0.88 (0.4-1.3 m/s) MV E' lateral 0.153 (>0.1 m/s) MV A Vmax 1.00 (0.4-1.3 m/s) LV E/e LAT 5.70 (<14) MV E/A Ratio 0.86 MV E/E' medial 5.54 MV E/E' lateral 5.71 Aortic Valve LVOT Vmax 1.30 m/s LVOT Mean Armando. 0.79 m/s LVOT Peak Grad 6.7 mmHg LVOT Mean Grad 3.1 mmHg LVOT VTI 0.249 m Mitral Valve MV DT 234 (160-240 msec) MV PHT 68 msec MV Area PHT 3.25 cm2 Pulmonary Valve PV Vmax 0.93 (0.5-1.5 m/s) RVOT Peak Gr. 2.35 mmHg PV Peak Grad 3.5 mmHg RVOT Mean Gr. 1.25 mmHg PV Mean Grad 2.0 mmHg RVOT VTI 0.160 m PV VTI 0.189 m RVOT Vmax 0.77 m/s Tricuspid Valve RA Pressure 3.00 mmHg
== END 2023-01-01 11:24 ==
LOC: DI 11:04
PROVIDERS: PCP Nurse Practitioner Family; Visit Provider Family Medicine
DX: I50.9 Heart failure, unspecified (principal)
CPT/HCPCS: 93306

== ENCOUNTER 2023-02-03 08:16 | Outpatient (CLI) | payer MEDICARE, SELFPAY ==
--- NOTE | 2023-02-03 08:15 | RT.EKG_ITS ---
APPROVED REPORT Exam: Resting ECG Reason for Exam: afib Patient Location: O HR:77 bpm ECG Measurements Heart Rate 77 AXIS NC 165 P 80 QRSd 131 QRS 72 QT 413 T 34 QTc 468 Conclusion Sinus rhythm...normal P axis, V-rate 50- 99 Right bundle branch block...QRSd>120, terminal axis(90,270)
== END 2023-02-03 08:17 | disposition home or self-care (01) ==
LOC: DI.CARD 08:17
PROVIDERS: PCP Nurse Practitioner Family; Visit Provider Internal Medicine Cardiovascular Disease
DX: I48.91 Unspecified atrial fibrillation (principal)
CPT/HCPCS: 93010

== ENCOUNTER → 2023-02-03 13:03 | Outpatient (BNVA) | payer MEDICARE, SELFPAY | PROVIDERS: PCP Nurse Practitioner Family; Referring Provider Nurse Practitioner Family; Visit Provider Internal Medicine Cardiovascular Disease | DX: R06.09 Other forms of dyspnea (principal); E66.01 Morbid (severe) obesity due to excess calories; J44.9 Chronic obstructive pulmonary disease, unspecified; G47.33 Obstructive sleep apnea (adult) (pediatric); F17.210 Nicotine dependence, cigarettes, uncomplicated | CPT/HCPCS: 93005; 99203 ==

== ENCOUNTER → 2023-07-13 13:52 | Outpatient (BNVA) | payer MEDICARE, SELFPAY | PROVIDERS: PCP Nurse Practitioner Family; Visit Provider Student in an Organized Health Care Education/Training Program | DX: J44.9 Chronic obstructive pulmonary disease, unspecified (principal); J98.4 Other disorders of lung; G47.33 Obstructive sleep apnea (adult) (pediatric); Z99.89 Dependence on other enabling machines and devices; F17.210 Nicotine dependence, cigarettes, uncomplicated | CPT/HCPCS: 99214 ==

== ENCOUNTER → 2023-08-05 02:39 | Outpatient (CLI) | payer MEDICARE, SELFPAY ==
--- NOTE | 2023-08-05 07:45 | DI.CTLCSR_ITS ---
Exam(s) CT CHEST LUNG CANCER SCREEN EXAM: CT CHEST LUNG CANCER SCREEN CLINICAL HISTORY: Screening for lung cancer,CURRENT SMOKER, F17.210 TECHNIQUE: Imaging Protocol: Axial computed tomography images with coronal and sagittal reformatted images were created and reviewed COMPARISON: CT CT CHEST LUNG CANCER SCREEN from 05/23/2022 FINDINGS: Tracheobronchial tree: Patent where visualized. Pulmonary parenchyma: Centrilobular emphysematous changes are present. There is scarring of the left major fissure again seen. No focal consolidating infiltrates are present. Lung Nodules: There is a stable 4 mm nodule in the right upper lobe (series 3, image 242). No other pulmonary nodules are appreciated. Mediastinum and Kati: No dominant adenopathy or fluid collection. The esophagus is unremarkable. Thyroid gland: Unremarkable. Lymph nodes: Unremarkable. Pleura: No effusion or pneumothorax. Heart: The heart is not dilated. Coronary artery calcifications are present. No pericardial effusion. Aorta: Thoracic aorta non-dilated.Atherosclerosis is present. Upper abdomen: Unremarkable. Soft Tissues: Unremarkable. Bones: Within normal limits. IMPRESSION: Stable pulmonary nodule. No new pulmonary nodules. Lung RADS Cat 2 - Benign Appearance / Behavior: Nodules with a very low likelihood of becoming a clin ically active cancer due to size or lack of growth Lung-RADS 1.0 CATEGORIES: Category 0 - Prior chest CT exam(s) being located for comparison. Category 1 - Annual screening in 12 months. No nodules or definitely benign nodules. Category 2 - Annual screening in 12 months. Benign appearance. Nodules with low likelihood of becomin g active cancer. Category 3 - 6-month follow-up. Probably benign. Short-term follow-up suggested. Nodules with low lik elihood of becoming active cancer. Category 4A - 3-month follow-up and CT/PET if >8 mm in size. Suspicious finding. Findings which requi re additional testing. Category 4B - Findings which require additional testing and tissue sampling. Suspicious finding. Category 4X - Category 3 or 4 nodules with additional features or imaging findings that increases the suspicion of malignancy. Modifier S- Potentially clinically significant finding. (Non lung cancer) RADIATION DOSE DELIVERED: 92.64mGy.cm Total DLP 92.64mGy.cm Total DLP 92.64mGy.cm Total DLP 92.64mGy.cmTotal DLP DATA REPOSITORY: All CT scans at this facility are submitted to the National Radiology Data Registry (NRDR) Dose Index Registry (DIR) with the [employer] (ACR). RADIATION OPTIMIZATION: All CT scans at this facility use at least one of these dose optimization te chniques: automated exposure control; mA and/or kV adjustment per patient size (includes targeted exa ms where dose is matched to clinical indication); or iterative reconstruction.
== END ==
PROVIDERS: PCP Nurse Practitioner Family; Visit Provider Student in an Organized Health Care Education/Training Program
DX: F17.210 Nicotine dependence, cigarettes, uncomplicated (principal); Z12.2 Encounter for screening for malignant neoplasm of respiratory organs; R91.1 Solitary pulmonary nodule
CPT/HCPCS: 71271

== ENCOUNTER 2023-09-08 17:44 | Outpatient (REF) | payer MEDICARE, SELFPAY ==
[2023-09-08 19:11] LABS: HDL Cholesterol 43 mg/dL (40-60); LDL CHOLESTEROL 90 mg/dL (<100)
[2023-09-08 19:13] LABS: Hemoglobin A1C 5.8 % (<5.7)
[2023-09-08 19:24] LABS: Creatine Kinase 49 U/L (39-308)
== END 2023-09-08 17:45 | disposition home or self-care (01) ==
LOC: NCHCN 17:44
PROVIDERS: PCP Nurse Practitioner Family; Visit Provider Nurse Practitioner Family
DX: E78.5 Hyperlipidemia, unspecified (principal); R73.09 Other abnormal glucose
CPT/HCPCS: 82550; 83721; 83036; 83718

== ENCOUNTER → 2023-12-18 15:08 | Outpatient (BNVA) | payer MEDICARE, SELFPAY | PROVIDERS: PCP Nurse Practitioner Family; Visit Provider Urology | DX: N40.1 Benign prostatic hyperplasia with lower urinary tract symptoms (principal); N13.8 Other obstructive and reflux uropathy; R97.20 Elevated prostate specific antigen [PSA] | CPT/HCPCS: 99213 ==

== ENCOUNTER 2023-12-18 15:49 | Outpatient (CLI) | payer MEDICARE, SELFPAY ==
[2023-12-18 22:57] LABS: PSA, Diagnostic 1.8 ng/mL (<=6.5)
== END 2023-12-18 15:50 | disposition home or self-care (01) ==
LOC: LBO 15:49
PROVIDERS: PCP Nurse Practitioner Family; Visit Provider Urology
DX: R97.20 Elevated prostate specific antigen [PSA] (principal)
CPT/HCPCS: 36415; 84153

== ENCOUNTER → 2024-01-18 14:48 | Outpatient (BNVA) | payer MEDICARE, SELFPAY | PROVIDERS: PCP Nurse Practitioner Family; Referring Provider Nurse Practitioner Family; Visit Provider Internal Medicine Critical Care Medicine | DX: J44.9 Chronic obstructive pulmonary disease, unspecified (principal); G47.33 Obstructive sleep apnea (adult) (pediatric); R91.1 Solitary pulmonary nodule; J98.4 Other disorders of lung; Z72.0 Tobacco use | CPT/HCPCS: 99214 ==

== ENCOUNTER 2024-04-01 19:09 | Outpatient (REF) | payer MEDICARE, SELFPAY ==
[2024-04-01 18:33] LABS: Clarity Cloudy (Clear)
[2024-04-01 18:46] LABS: Leukocyte Esterase Color Interference (Negative)
[2024-04-01 18:48] LABS: Nitrite Color Interference (Negative)
[2024-04-01 18:49] LABS: Bilirubin Color Interference (Negative); Blood Color Interference (Negative); Glucose Color Interference mg/dL (Negative); Ketones Color Interference mg/dL (Negative); Urobilinogen Color Interference mg/dL (Up to 0.2)
[2024-04-01 18:51] LABS: C & S Indicated? Yes; RBC >50 HPF (0-2)
== END 2024-04-01 19:10 | disposition home or self-care (01) ==
LOC: NCHCN 19:09
PROVIDERS: PCP Nurse Practitioner Family; Visit Provider Nurse Practitioner Family
DX: R31.0 Gross hematuria (principal); R82.89 Other abnormal findings on cytological and histological examination of urine
CPT/HCPCS: 81003; 81015; 87086

== ENCOUNTER → 2024-04-11 14:31 | Outpatient (BNVA) | payer MEDICARE, SELFPAY | PROVIDERS: PCP Nurse Practitioner Family; Visit Provider Nurse Practitioner Gerontology | DX: R31.0 Gross hematuria (principal) | CPT/HCPCS: 81003; 99213 ==

== ENCOUNTER 2024-04-11 16:16 | Outpatient (REF) | payer MEDICARE, SELFPAY ==
[2024-04-11 19:05] LABS: Bilirubin Negative (Negative); Blood Moderate (Negative); Clarity Sl Cloudy (Clear); Glucose Negative (Negative); Ketones Negative (Negative); Leukocyte Esterase Small (Negative); Nitrite Negative (Negative); Specific Gravity 1.015 (1.005-1.025)
[2024-04-11 19:20] LABS: Bacteria Negative HPF (Negative); C & S Indicated? C&S Done As Ordered; Crystals Moderate Amorphous HPF (Negative); Epithelial Cells Many HPF (Negative); Mucus Moderate (Negative); Other Cells Negative (Negative); RBC 20-50 HPF (0-2)
== END 2024-04-11 16:17 | disposition home or self-care (01) ==
LOC: LBN 16:16
PROVIDERS: PCP Nurse Practitioner Family; Visit Provider Nurse Practitioner Gerontology
DX: R31.0 Gross hematuria (principal); R82.89 Other abnormal findings on cytological and histological examination of urine
CPT/HCPCS: 81003; 81015; 87086

== ENCOUNTER 2024-04-27 02:34 | Outpatient (CLI) | payer MEDICARE, SELFPAY ==
--- NOTE | 2024-04-27 07:43 | DI.CT_ITS ---
Exam(s) CT ABDOMEN PELVIS WO/W EXAM: CT ABDOMEN PELVIS WO/W CLINICAL HISTORY: gross hematuria,R31.9 TECHNIQUE: Imaging Protocol: Axial computed tomography images with coronal and sagittal reformatted images were created and reviewed. CONTRAST MATERIAL: Intravenous: Omnipaque 350 Contrast volume:100 mL Oral: No COMPARISON: CT ABD/PELVIS WO W CONTRAST from 06/14/2012 CT ABD/PELVIS WO W CONTRAST from 06/14/2012 CT RENAL COLIC WO CONTRAST from 06/04/2016 CT,NM,TMT NM MPI REST STRESS GRP from 02/25/2021 FINDINGS: ABDOMEN: Lung Bases: Normal where visualized. Liver: Normal density. There is a peripherally enhancing lesion seen in the posterior aspect of the r ight lobe of the liver most suggestive of hepatic hemangioma. No suspicious hepatic masses are seen. Portal, Superior Mesenteric, and Splenic Veins: Unremarkable. Gallbladder and Biliary Tract: No radiodense calculus or dilation. Pancreas: Normal density, no abnormal calcifications or inflammatory process. Spleen: Normal. Adrenals: No masses seen. Kidneys: Normal size, contour and axis. No radiodense stones or obstructive uropathy. There is a 2.3 x 2.7 cm soft tissue density in the right renal pelvis (series 15, image 54). Abdominal Aorta: Abdominal portion non-dilated. Atherosclerotic calcification is present. Bowel: No obstruction or bowel wall thickening. The descending colon is not included on this examinat ion. This is due to the patient's body habitus and positioning. The remainder of the bowel is unrem arkable. The appendix is unremarkable. Peritoneal Cavity: No ascites, collection or mesenteric inflammatory response. No free air. Lymph Nodes: Within normal limits. Bones: Within normal limits for the patient's age. Soft Tissues: There is a small fat containing umbilical hernia. There is a fat containing left ingui nal hernia. PELVIS: Bladder: There is a 3.2 x 2.6 cm round soft tissue density best appreciated on the 7 minutes delayed images in the urinary bladder on the left. It does appear contiguous with the prostate gland. But a bladder mass cannot be excluded. Reproductive Organs: Enlarged prostate gland. Please see the above discussion under urinary bladder. Lymph Nodes: Within normal limits. Bones: Within normal limits for the patient's age. IMPRESSION: 1. No evidence of nephrolithiasis or hydronephrosis. 2. 2.3 x 2.7 cm soft tissue density in the right renal pelvis (series 15 image 54). Renal neoplasm s hould be considered. MRI of the kidneys is recommended without and with contrast for further evaluat ion. 3. 3.2 x 2.6 cm round soft tissue density seen in the base of the urinary bladder on the left best ap preciated on the delayed images. This may be a projection of the enlarged prostate gland but a prost atic or bladder mass cannot be excluded.. Unexpected findings RADIATION DOSE DELIVERED: 3,979.33mGy.cm Total DLP 3,979.33mGy.cm Total DLP DATA REPOSITORY: All CT scans at this facility are submitted to the National Radiology Data Registry (NRDR) Dose Index Registry (DIR) with the [employer] (ACR). RADIATION OPTIMIZATION: All CT scans at this facility use at least one of these dose optimization te chniques: automated exposure control; mA and/or kV adjustment per patient size (includes targeted exa ms where dose is matched to clinical indication); or iterative reconstruction.
[2024-04-27 14:44] LABS: CREATININE 1.1 mg/dL (0.70-1.30); Estimated GFR 70.88 (mL/min/1.73m2)
[2024-04-27] MEDS: Omnipaque 350 MG/ML 100 ML BTL IJ (15:55)
[2024-04-27] MEDS: Normal Saline - Diluent 50 ML VIAL IJ ×2 (15:56→15:57)
== END 2024-04-27 02:54 ==
LOC: DI 02:34
PROVIDERS: PCP Nurse Practitioner Family; Visit Provider Nurse Practitioner Gerontology
DX: R31.9 Hematuria, unspecified (principal); R93.2 Abnormal findings on diagnostic imaging of liver and biliary tract
CPT/HCPCS: 74178; 82565; J3490

== ENCOUNTER → 2024-05-16 15:20 | Outpatient (BNVA) | payer MEDICARE, SELFPAY | PROVIDERS: PCP Nurse Practitioner Family; Referring Provider Nurse Practitioner Family; Visit Provider Nurse Practitioner Gerontology | DX: N28.89 Other specified disorders of kidney and ureter (principal); Z72.0 Tobacco use; R31.0 Gross hematuria | CPT/HCPCS: 99213 ==

== ENCOUNTER 2024-05-16 15:56 | Outpatient (REF) | payer MEDICARE, SELFPAY ==
--- NOTE | 2024-05-16 15:20 | PAPNONF_PTH ---
PATIENT: Clint Durand LOC: [facility] U#:[id number] AGE/SX: 73/M ROOM: RE05/16/[address]: Julissa Sigala DNP : 1950 BED: DIS: 05/16/2024 SPEC #: [id number] RECD: 05/16/24 17:45 STATUS: DANIEL REQ #: [id number] KEVIN: 05/16/24 15:[address]: Julissa Sigala DEPT: [facility] Cytology RECD BY: Latricia Travis ENTERED: 05/16/24 17:46 SP TYPE: [facility] DR: Rosalee Sesay Tissues: 1 - BODY FLUID CYTO(SPUTUM/URINE)[facility] Procedures: BODY FLUID CYTO(URINE/SPUTUM) Comments: [id number] (TV = 55 ml, 30 ml CYTOLYT ADDED) (REFRIGERATED)
== END 2024-05-16 15:57 | disposition home or self-care (01) ==
LOC: LBN 15:56
PROVIDERS: PCP Nurse Practitioner Family; Visit Provider Nurse Practitioner Gerontology
DX: R31.9 Hematuria, unspecified (principal); R82.89 Other abnormal findings on cytological and histological examination of urine
CPT/HCPCS: 88104

== ENCOUNTER 2024-06-10 00:20 | Outpatient (CLI) | payer MEDICARE, SELFPAY ==
--- NOTE | 2024-06-10 07:30 | DI.MRI_ITS ---
Exam(s) MR ABDOMEN WO/W EXAM: MR ABDOMEN WO/W CLINICAL HISTORY: right renal mass,F/U ABNL CT,R93.5 TECHNIQUE: Multiplanar multisequence MRI of the Abdomen was performed. CONTRAST MATERIAL: IV Contrast: 20 mL of Dotarem contrast administered. COMPARISON: CT RENAL COLIC WO CONTRAST from 06/04/[address] ABDOMEN PELVIS WO/W from 04/27/2024 FINDINGS: Lung bases: Unremarkable. Liver: Posterior portions of the liver are included on the exam. There are 2 circumscribed high T2 s ignal lesions with enhancement characteristics consistent with hemangiomas. The more lateral lesion measures 2.6 cm in diameter. The more medial lesion measures 1.9 x 2.4 cm. Pancreas: Unremarkable. Gallbladder and Bile Ducts: Unremarkable. Adrenals: Unremarkable. Kidneys: Corresponding to the mass seen on the recent CT, there is a solid-appearing mildly high T2 s ignal at the circumscribed mass in the mid left kidney. It shows enhancement following IV contrast. T he has a mildly heterogeneous appearance. No invasive qualities. Other tiny renal cysts are noted. Spleen: Unremarkable. Aorta: Unremarkable. Soft Tissues: Unremarkable. Bone: Unremarkable. Lymph Nodes: There are 2 right para-aortic lymph nodes at the level of the kidneys measuring 14 rodolfo meters each in size. They were present on the previous CT from 2015 but appear to have enlarged. Stomach and bowel: Unremarkable. Peritoneal cavity: Unremarkable. No evidence of ascites. IMPRESSION: 2.9 centimeter right renal mass suspicious for neoplasm such as renal cell carcinoma. DATA REPOSITORY:
[2024-06-10] MEDS: Normal Saline - Diluent 50 ML VIAL 25 ML IJ (13:58)
[2024-06-10] MEDS: Gadoterate meglumine 20 ML VIAL IVP (13:59)
== END 2024-06-10 00:40 ==
LOC: DI 00:20
PROVIDERS: PCP Nurse Practitioner Family; Visit Provider Nurse Practitioner Gerontology
DX: R93.5 Abnormal findings on diagnostic imaging of other abdominal regions, including retroperitoneum (principal)
CPT/HCPCS: 74183

== ENCOUNTER 2024-07-01 15:26 | Outpatient (REF) | payer MEDICARE, SELFPAY | END 2024-07-01 15:27 | disposition home or self-care (01) | LOC: NCHCN 15:26 | PROVIDERS: PCP Nurse Practitioner Family; Visit Provider Nurse Practitioner Family | DX: S81.802A Unspecified open wound, left lower leg, initial encounter (principal); X58.XXXA Exposure to other specified factors, initial encounter | CPT/HCPCS: 87070; 87205 ==

== ENCOUNTER → 2024-07-05 14:31 | Outpatient (BNVA) | payer MEDICARE, SELFPAY | PROVIDERS: PCP Nurse Practitioner Family; Referring Provider Nurse Practitioner Family; Visit Provider Nurse Practitioner Gerontology | DX: N28.89 Other specified disorders of kidney and ureter (principal) | CPT/HCPCS: 99213 ==

== ENCOUNTER 2024-07-12 03:48 | Outpatient (CLI) | payer MEDICARE, SELFPAY ==
[2024-07-12] MEDS: Levalbuterol HFA 15 GM INH 4 PUFF IH (16:00)
[2024-07-12] MEDS: Inhaler, Assist Device 1 EACH MC (16:00)
--- NOTE | 2024-07-19 17:22 | W.PFT ---
Date of service: 07/12/24 Time of Service: 15:06 Pulmonary Function Test Result Indications: COPD Interpretation Spirometry: There is moderate airflow limitation. No bronchodilator response. The FVC is low. Lung Volumes: There is restrictive lung disease Diffusion Capacity: There is a reduced diffusion Airway Pressure: Normal airways resistance Impression Moderate airflow limitation and a moderate restrictive lung disease with a decreased diffusion. Clinical Correlation therefore is recommended.
== END 2024-07-12 03:49 | disposition home or self-care (01) ==
LOC: RT 03:48
PROVIDERS: PCP Nurse Practitioner Family; Visit Provider Student in an Organized Health Care Education/Training Program
DX: J44.9 Chronic obstructive pulmonary disease, unspecified (principal)
CPT/HCPCS: 94060; 94726; 94729

== ENCOUNTER 2024-08-15 02:11 | Outpatient (CLI) | payer MEDICARE, SELFPAY ==
--- NOTE | 2024-08-15 15:48 | DI.CTLCSR_ITS ---
Exam(s) CT CHEST LUNG CANCER SCREEN EXAM: CT CHEST LUNG CANCER SCREEN CLINICAL HISTORY: Screening for lung cancer,CIGARETTE NICOTINE DEPENDENCE,f17.210 TECHNIQUE: Imaging Protocol: Axial computed tomography images with coronal and sagittal reformatted images were created and reviewed. Low dose screening protocol. COMPARISON: CT CT CHEST LUNG CANCER SCREEN from 08/05/2023 FINDINGS: Tracheobronchial tree: Mild bronchial wall thickening in the left lower lobe no bronchiectasis or muc us plugging. Mediastinum and Kati: No dominant adenopathy or fluid collection. Pulmonary parenchyma: No consolidation or dominant measurable mass. Moderate centrilobular emphysemat ous changes. No significant interstitial changes. Scarring at the left major fissure. Lung Nodules: Stable 4 millimeter nodule right upper lobe. Pleura: No effusion. No pneumothorax. Heart: The heart is mildly dilated. [id number] coronary artery calcifications are seen. No per icardial effusion. Aorta: Thoracic aorta non-dilated. Mild atherosclerotic changes. Upper abdomen: Unremarkable. Bones: Unremarkable for age. Soft Tissues: Unremarkable. IMPRESSION: No suspicious pulmonary nodules. Stable 4 millimeter nodule right upper lobe. No new nodules. Lung RADS Cat 2 - Benign Appearance / Behavior: Nodules with a very low likelihood of becoming a clin ically active cancer due to size or lack of growth Lung-RADS 1.0 CATEGORIES: Category 0 - Prior chest CT exam(s) being located for comparison. Category 1 - Annual screening in 12 months. No nodules or definitely benign nodules. Category 2 - Annual screening in 12 months. Benign appearance. Nodules with low likelihood of becomin g active cancer. Category 3 - 6-month follow-up. Probably benign. Short-term follow-up suggested. Nodules with low lik elihood of becoming active cancer. Category 4A - 3-month follow-up and CT/PET if >8 mm in size. Suspicious finding. Findings which requi re additional testing. Category 4B - Findings which require additional testing and tissue sampling. Category 4X - Category 3 or 4 nodules with additional features or imaging findings that increases the suspicion of malignancy. Modifier S- Potentially clinically significant findings (non lung cancer) RADIATION DOSE DELIVERED: !Error Total DLP DATA REPOSITORY: All CT scans at this facility are submitted to the National Radiology Data Registry (NRDR) Dose Index Registry (DIR) with the [employer] (ACR). RADIATION OPTIMIZATION: All CT scans at this facility use at least one of these dose optimization te chniques: automated exposure control; mA and/or kV adjustment per patient size (includes targeted exa ms where dose is matched to clinical indication); or iterative reconstruction.
== END 2024-08-15 02:31 ==
LOC: DI 02:11
PROVIDERS: PCP Nurse Practitioner Family; Visit Provider Internal Medicine Critical Care Medicine
DX: F17.210 Nicotine dependence, cigarettes, uncomplicated (principal); Z12.2 Encounter for screening for malignant neoplasm of respiratory organs
CPT/HCPCS: 71271

== ENCOUNTER 2024-08-17 19:14 | Outpatient (REF) | payer MEDICARE, SELFPAY | END 2024-08-17 19:15 | disposition home or self-care (01) | LOC: NCHCN 19:14 | PROVIDERS: PCP Nurse Practitioner Family; Visit Provider Nurse Practitioner Family | DX: I87.312 Chronic venous hypertension (idiopathic) with ulcer of left lower extremity (principal) | CPT/HCPCS: 87070; 87205 ==

== ENCOUNTER → 2024-09-07 14:55 | Outpatient (BNVA) | payer MEDICARE, SELFPAY | PROVIDERS: PCP Nurse Practitioner Family; Referring Provider Nurse Practitioner Family; Visit Provider Physician Assistant Surgical | DX: J44.9 Chronic obstructive pulmonary disease, unspecified (principal); G47.33 Obstructive sleep apnea (adult) (pediatric); J98.4 Other disorders of lung; F17.210 Nicotine dependence, cigarettes, uncomplicated; R06.2 Wheezing | CPT/HCPCS: 94640; 99214; J7620 ==

== ENCOUNTER 2024-09-30 18:23 | Outpatient (REF) | payer MEDICARE, SELFPAY ==
[2024-09-30 18:40] LABS: HCT 46.9 % (40.0-50.0); HGB 15.3 g/dL (13.5-17.5); MCH 31.4 pg (27.0-33.0); MCHC 32.6 % (32.0-36.0); MCV 96 fL (80-95); MPV 12.3 fL (8.0-11.0); Platelet Count 156 10^3/uL (130-400); RBC 4.88 10^6/uL (4.36-5.78); RDW 15.9 % (11.8-14.1); RDW-SD 57.1 fL; WBC 7.14 10^3/uL (4.4-10.8)
[2024-09-30 18:50] LABS: Iron 88 ug/dL (65-175); Total Iron Binding Capacity 303 ug/dL (250-450); Transferrin Sat 29 % (20-55)
[2024-09-30 19:03] LABS: Ferritin 72 ng/mL (26-388)
== END 2024-09-30 18:24 | disposition home or self-care (01) ==
LOC: NCHCN 18:23
PROVIDERS: PCP Nurse Practitioner Family; Visit Provider Nurse Practitioner Family
DX: D64.9 Anemia, unspecified (principal)
CPT/HCPCS: 85027; 82728; 83540; 83550

== ENCOUNTER 2024-11-11 17:58 | Outpatient (REF) | payer MEDICARE, SELFPAY | END 2024-11-11 17:59 | disposition home or self-care (01) | LOC: NCHCN 17:58 | PROVIDERS: PCP Nurse Practitioner Family; Visit Provider Family Medicine | DX: I83.018 Varicose veins of right lower extremity with ulcer other part of lower leg (principal); L97.811 Non-pressure chronic ulcer of other part of right lower leg limited to breakdown of skin | CPT/HCPCS: 87077; 87070; 87186; 87205 ==

== ENCOUNTER → 2024-12-07 15:17 | Outpatient (BNVA) | payer MEDICARE, SELFPAY | PROVIDERS: PCP Nurse Practitioner Family; Referring Provider Nurse Practitioner Family; Visit Provider Physician Assistant Surgical | DX: J44.9 Chronic obstructive pulmonary disease, unspecified (principal); G47.33 Obstructive sleep apnea (adult) (pediatric); J98.4 Other disorders of lung; F17.210 Nicotine dependence, cigarettes, uncomplicated | CPT/HCPCS: 99214 ==

== ENCOUNTER 2025-01-20 17:56 | Outpatient (REF) | payer MEDICARE, SELFPAY ==
[2025-01-20 19:59] LABS: ALT 25 U/L (16-63); AST 15 U/L (15-37); Albumin 3.5 g/dL (3.4-5.0); Alkaline Phosphatase 104 U/L (46-116); Anion Gap 7.4 mmol/L (3-11); BUN 19 mg/dL (7-18); Bilirubin, Total 0.6 mg/dL (0.2-1.0); CO2 29.6 mmol/L (21.0-32.0); Calcium 8.8 mg/dL (8.5-10.1); Calculated LDL 89 mg/dL (<100); Chloride 105 mmol/L (98-107); Cholesterol 143 mg/dL (<200); Estimated GFR 89.62 (mL/min/1.73m2); Glucose 100 mg/dL (74-106); HDL Cholesterol 46 mg/dL (>or=40); Potassium 4.7 mmol/L (3.5-5.1); Sodium 142 mmol/L (136-145); Total Protein 7.0 g/dL (6.4-8.2); Triglyceride 42 mg/dL (<150)
[2025-01-20 20:15] LABS: Hemoglobin A1C 5.9 % (<5.7)
== END 2025-01-20 17:57 | disposition home or self-care (01) ==
LOC: NCHCN 17:56
PROVIDERS: PCP Nurse Practitioner Family; Visit Provider Nurse Practitioner Family
DX: E78.5 Hyperlipidemia, unspecified (principal); R73.03 Prediabetes
CPT/HCPCS: 80053; 80061; 83036

== ENCOUNTER 2025-02-07 21:14 | Outpatient (REF) | payer MEDICARE, SELFPAY | END 2025-02-07 21:15 | disposition home or self-care (01) | LOC: NCHCN 21:14 | PROVIDERS: PCP Nurse Practitioner Family; Visit Provider Nurse Practitioner Family | DX: R32 Unspecified urinary incontinence (principal) | CPT/HCPCS: 87086 ==